=== PATIENT | female | born 1965 | race Hispanic/Latino ===

== ENCOUNTER 2017-06-11 20:07 | Observation (INO) | payer MEDICAID ==
[2017-06-11 20:07] VITALS: BMI 28.1
[2017-06-11] MEDS ORDERED: Morphine 4 mg/ml ISec IM STA (22:07)
--- NOTE | 2017-06-11 22:07 | ED PDOC ---
Arrival/HPI - General Chief Complaint: Headache Time Seen by Provider: 06/11/17 21:54 Historian: Patient - History of Present Illness Narrative History of Present Illness (Text): 06/11/17 21:56 52 y/o female, pmh including htn/asthma/disc bulging C5-C7, nkda, Last MRI of the brain 10/2016 show no acute findings, c/o posterior headache and neck pain x3 days. Pt. 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 Past Medical History - Provider Review Nursing Documentation Reviewed: Yes - Past History Past History: No Previous - Infectious Disease Hx of Infectious Diseases: None - Tetanus Immunization Tetanus Immunization: Unknown - Reproductive Menopause: Yes - Cardiac Hx Cardiac Disorders: No Hx Congestive Heart Failure: No Hx Hypertension: Yes - Pulmonary Hx Chronic Obstructive Pulmonary Disease (COPD): Yes (smoker) Hx Pneumonia: No - Neurological HX Cerebrovascular Accident: No Other/Comment: [place] palsy - HEENT Hx HEENT Disorder: Yes Other/Comment: vocal cord lesions - Renal Hx Renal Failure: No - Endocrine/Metabolic Hx Diabetes Mellitus Type 1: No Hx Diabetes Mellitus Type 2: No Hx Hypothyroidism: No - Hematological/Oncological Hx Cancer: No - Integumentary Hx Dermatological Disorder: No - Musculoskeletal/Rheumatological Hx Arthritis: No Hx Rheumatoid Arthritis: No - Gastrointestinal Hx Gastroesophageal Reflux: No - Genitourinary/Gynecological Hx Genitourinary Disorders: Yes Other/Comment: Tubal ligation, [place] bleeding - Psychiatric Hx Psychophysiologic Disorder: Yes Hx Anxiety: Yes Hx Panic Disorder: Yes Hx Substance Use: No - Past Surgical History Past Surgical History: Unable to Obtain - Surgical History Hx Tubal Ligation: Yes Other/Comment: vocal cord surgery - Anesthesia Hx Anesthesia: Yes Hx Anesthesia Reactions: No Hx Malignant Hyperthermia: No - Suicidal Assessment Feels Threatened In Home Enviroment: No Family/Social History - Physician Review Nursing Documentation Reviewed: Yes Family/Social History: Unknown Family HX Smoking Status: Former Smoker Hx Alcohol Use: No Hx Substance Use: No Hx Substance Use Treatment: No Allergies/Home Meds Allergies/Adverse Reactions: Allergies No Known Allergies Allergy (Verified 11/01/16 16:40) Home Medications: Home Meds Medication Instructions Recorded Confirmed Gabapentin 300 mg PO BID 03/09/12 06/12/17 Montelukast [Singulair] 10 mg PO DAILY 03/09/12 06/12/17 Albuterol 0.083% [Albuterol 0.083% 3 ml IH PRN PRN 06/07/13 06/12/17 Inhal Aida (2.5 mg/3 ml) UD] Acetaminophen/Oxycodone Hydr 1 tab PO Q4H 03/02/14 06/12/17 [Percocet 10/325 mg Tab] Albuterol [Proventil] 1 inh PO PRN PRN 03/02/14 06/12/17 Carisoprodol [Soma] 350 mg PO TID 06/02/15 06/12/17 Carvedilol [Coreg] 6.25 mg PO BID 06/02/15 06/12/17 Meclizine HCl 25 mg PO TID 06/02/15 06/12/17 Omeprazole [PrilOSEC] 20 mg PO DAILY 06/02/15 06/12/17 Paroxetine HCl [Paxil] 20 mg PO DAILY 06/02/15 06/12/17 carBAMazepine [TEGretol-XR] 200 mg PO BID 06/02/15 06/12/17 clonazePAM [Klonopin] 1 mg PO BID 02/20/16 06/12/17 Review of Systems - Review of Systems Constitutional: absent: Fatigue, Fevers Eyes: absent: Vision Changes ENT: absent: Hearing Changes Respiratory: absent: SOB, Cough Cardiovascular: absent: Chest Pain Gastrointestinal: absent: Abdominal Pain, Nausea, Vomiting Musculoskeletal: Neck Pain. absent: Arthralgias, Back Pain Skin: absent: Rash, Pruritis, Skin Lesions Neurological: Headache, Speech Changes. absent: Dizziness, Focal Weakness, Gait Changes, Facial Droop, Disequilibrium Physical Exam Vital Signs Reviewed: Yes Vital Signs Temp Pulse Resp BP Pulse Ox 06/12/17 02:32 77 18 132/83 95 06/11/17 21:15 98.5 F 98 H 16 161/92 H 95 Temperature: Afebrile Blood Pressure: Hypertensive Pulse: Regular Respiratory Rate: Normal Appearance: Positive for: Well-Appearing, Non-Toxic Pain Distress: Severe Mental Status: Positive for: Alert and Oriented X 3 - Systems Exam Head: Present: Atraumatic, Normocephalic. No: Tenderness, Contusion, Swelling, Ecchymosis, Abrasion, Laceration, Other Pupils: Present: PERRL Extroacular Muscles: Present: EOMI Conjunctiva: Present: Normal Mouth: Present: Moist Mucous Membranes Neck: Present: Normal Range of Motion, Trachea Midline. No: Meningeal Signs, MIDLINE TENDERNESS, Paraspinal Tenderness, Lymphadenopathy Respiratory/Chest: Present: Clear to Auscultation, Good Air Exchange. No: Respiratory Distress, Accessory Muscle Use Cardiovascular: Present: Regular Rate and Rhythm, Normal S1, S2. No: Murmurs Abdomen: Present: Normal Bowel Sounds. No: Tenderness, Distention, Peritoneal Signs, Rebound, Guarding Back: Present: Normal Inspection Upper Extremity: Present: Normal Inspection. No: Cyanosis, Edema Lower Extremity: Present: Normal Inspection. No: Edema Neurological: Present: GCS=15, Motor Func Grossly Intact, Memory Normal. No: Speech Normal (slurred speech) Skin: Present: Warm, Dry, Normal Color. No: Rashes Psychiatric: Present: Alert, Oriented x 3, Normal Insight, Normal Concentration Medical Decision Making ED Course and Treatment: 06/11/17 22:21 -CT head -pt. able to tolerate the swallow screen with a cup of water with no drooling -Morphine 4mg and benadryl 50mg -observe and reassess 06/12/17 01:05 06/12/17 01:15 -EKG: NSR @ 63 BPM, no ST elevation or depression, no T wave inversion. -CT head show no acute findings. -NIHSS is 1 -Pain decreased but the slurring still exist, aspirin ordered, labs ordered, will admit the patient over night. Not a TPA candidate -labs are non-significant, negative troponin 06/12/17 01:37 -I spoke to Dr. Clayton and request to admit to the hospitalist service. -I spoke to Dr. Moore and Dr. Zapata (medical numerical control operator), discussed about the case and agreed on keep the patient as observation. -Dr. Michael will put in the admission to tele. - Lab Interpretations Lab Results: 06/12/17 00:10 06/12/17 00:10 Lab Results 06/12/17 00:30: Urine Color Cancelled, Urine Appearance Cancelled, Urine pH Cancelled, Ur Specific [place] Cancelled, Urine Protein Cancelled, Urine Glucose (UA) Cancelled, Urine Ketones Cancelled, Urine Blood Cancelled, Urine Nitrate Cancelled, Urine Bilirubin Cancelled, Urine Urobilinogen Cancelled, Ur Leukocyte Esterase Cancelled, Urine RBC Cancelled, Urine WBC Cancelled, Ur Epithelial Cells Cancelled, Calcium Oxalate Crystal Cancelled, Uric Acid Crystals Cancelled, Triple Phos Crystals Cancelled, Other Crystals Cancelled, Amorphous Sediment Cancelled, Urine Bacteria Cancelled, Hyaline Casts Cancelled , Fine Granular Casts Cancelled, Coarse Granular Casts Cancelled, Waxy Casts Cancelled, RBC Casts Cancelled, WBC Casts Cancelled, Urine Other Cancelled 06/12/17 00:10: Sodium 138, Potassium 4.3, Chloride 104, Carbon Dioxide 27, Anion Gap 11, BUN 8, Creatinine 0.6, Est GFR ( Amer) > 60, Est GFR (Non- Af Amer) > 60, Random Glucose 79, Calcium 9.2, Magnesium 1.9, Total Bilirubin 0.6, AST 21, ALT 22, Alkaline Phosphatase 64, Lactate Dehydrogenase 467, Total Creatine Kinase 69, Troponin I < 0.01, Total Protein 6.6, Albumin 3.8, Globulin 2.7, Albumin/Globulin Ratio 1.4 06/12/17 00:10: WBC 5.3 D, RBC 3.89, Hgb 12.5, Hct 37.1, MCV 95.4, MCH 32.1, MCHC 33.7, RDW 13.5, Plt Count 243, MPV 9.4, Gran % 57.1, Lymph % (Auto) 34.0, [place] % (Auto) 7.4 H, Eos % (Auto) 1.1 L, Baso % (Auto) 0.4, Gran # 3.01, Lymph # 1.8, [place] # 0.4, Eos # 0.1, Baso # 0.02 I have reviewed the lab results: Yes Interpretation: No clinic. lab abnormalty - RAD Interpretation Radiology Orders: 06/11/17 22:07 HEAD W/O CONTRAST [CT] Stat no acute intracranial findings. Mental Health Case Manager: Radiologist - EKG Interpretation EKG Interpretation (Text): 06/12/17 01:37 NSR @ 63 BPM, no ST elevation or depression, no T wave inversion. Interpreted by ED Physician: Yes Type: 12 lead EKG - Medication Orders Current Medication Orders: Acetaminophen/Butalbital/Caffeine (Fioricet) 1 tab PO Q4H PRN PRN Reason: Headache Albuterol/Ipratropium (Duoneb 3 Mg/0.5 Mg (3 Ml) Ud) 3 ml IH Q2H PRN PRN Reason: Shortness of Breath Carvedilol (Coreg) 6.25 mg PO BID [facility] Last Admin: 06/12/17 09:33 Dose: 6.25 mg Al Hydrox/Mg Hydrox/Simethicone 30 ml/Diphenhydramine HCl 75 mg/Lidocaine 30 ml 0 ml PO Q2H PRN PRN Reason: Mouth/Throat Pain Cyclobenzaprine HCl (Flexeril) 10 mg PO TID [facility] Last Admin: 06/12/17 13:27 Dose: 10 mg Ibuprofen (Motrin Tab) 400 mg PO Q6H PRN PRN Reason: Pain, Mild (1-3) Montelukast Sodium (Singulair) 10 mg PO HS [facility] Oxycodone/Acetaminophen (Percocet 10/325 Mg Tab) 1 tab PO Q4H PRN PRN Reason: Pain, severe (8-10) Pantoprazole Sodium (Protonix Inj) 40 mg IVP DAILY [facility] Last Admin: 06/12/17 09:33 Dose: 40 mg Discontinued Medications Aspirin (Aspirin) 325 mg PO STAT STA Stop: 06/11/17 23:45 Last Admin: 06/12/17 00:17 Dose: 325 mg Diphenhydramine HCl (Benadryl) 50 mg IVP STAT STA Stop: 06/11/17 22:34 Last Admin: 06/11/17 22:48 Dose: 50 mg Morphine Sulfate (Morphine) 4 mg IVP STAT STA Stop: 06/11/17 22:34 Last Admin: 06/11/17 22:48 Dose: 4 mg NIHSS Scale ([place]) Time Performed: 01:04 - How Severe is the Stoke Baseline Level of Consciousness: 0=Alert LOC to Questions: 0=Both comments correct LOC to commands: 0=Obeys both correctly Best Gaze: 0=Normal Visual: 0=No visual loss Facial: 0=Normal Motor Arm - Left: 0=No drift Motor Arm - Right: 0=No drift Motor Leg - Left: 0=No drift Motor Leg - Right: 0=No drift Limb Ataxia: 0=Absent Sensory: 0=Normal Best Language: 0=No aphasia Dysarthia: 1=Mild to moderate slurring Extinction & Inattention (Neglect): 0=Normal, no object Score: 1 Risk Level: Minor Stroke Risk rTPA Inclusion/Exclusion - Refusal of Treatment Patient Refused Treatment: No - Inclusion Criteria for Altepase Patient is 18 years or Older: Yes The Clinical Diagnosis of Ischemic Stroke That is Causing a Potentially Disabling Neurological Deficit: Yes Time of Onset is Well Established to be Less Than 270 Minute Before Treatment Would Begin: No Risk/Benefit Discussed With Patient/Family Member Present: Yes - Exclusion Criteria for Altepase Uncontrolled Hypertension at Time of Treatment (Systolic BP above 185 or Diastolic BP above 110 mmHg): No Active Internal Bleeding: No Known Bleeding Diathesis Including but Not Limited to: Platelets Below 100,000/ mm,PTT Above 40 sec After Heparin Use, Current Use of Oral Anitcoagulant With INR Greater Than 1.7 or PT Greater Than 15 secs: No Evidence of an Intracranial Hemorrhage: No Evidence of Major Acute Infarct With Signs Greater Than 1/3 MCA Territory: No Suspicion of Subarachnoid Hemorrhage on Pretreatment Evaluation Even if CT Head Negative For Hemorrhage: No - Warning to TPA With Conditions Following Conditions Weighed Against Anticipated Benefit: No - PA / WAREHOUSE EXAMINER / Resident Statement MD/DO has reviewed & agrees with the documentation as recorded. Disposition/Present on Arrival - Present on Arrival Any Indicators Present on Arrival: No History of DVT/PE: No History of Uncontrolled Diabetes: No Urinary Catheter: No History of Decub. Ulcer: No History Surgical Site Infection Following: None - Disposition Have Diagnosis and Disposition been Completed?: Yes Diagnosis: Transient ischemic attack (TIA) Disposition: HOSPITALIZED Disposition Time: 01:05 Patient Plan: Telemetry Patient Problems: Current Active Problems Problem Status Onset Transient ischemic attack (TIA) Acute Condition: STABLE
[2017-06-11] MEDS ORDERED: DiphenhydrAMINE 50 mg/ml Inj IM STA (22:23)
[2017-06-11] MEDS ORDERED: DiphenhydrAMINE 50 mg/ml Inj IVP STA (22:33)
[2017-06-11] MEDS ORDERED: Morphine 4 mg/ml ISec IVP STA (22:33)
--- NOTE | 2017-06-11 22:56 | CT ---
EXAM: CT Head Without Intravenous Contrast CLINICAL HISTORY: 52 years old, female; Pain; Headache; Tension; Additional info: Headache x 5 days TECHNIQUE: Axial computed tomography images of the head/brain without intravenous contrast. This CT exam was performed using one or more of the following dose reduction techniques: automated exposure control, adjustment of the mA and/or kV according to patient size, and/or use of iterative reconstruction technique. COMPARISON: CT - HEAD W/O (CODE STROKE) 11/01/2016 5:00:46 PM FINDINGS: Brain: No acute intracranial hemorrhage. No significant white matter disease. No edema. Ventricles: No significant ventriculomegaly. Bones: No acute displaced fracture. Sinuses: Unremarkable as visualized. No acute sinusitis. Mastoid air cells: Unremarkable as visualized. No mastoid effusion. Again identified are multiple subcutaneous scalp nodules, nonspecific in etiology. IMPRESSION: No acute intracranial hemorrhage, or suspicious mass effect.
[2017-06-12 01:01] LABS: ALB/GLOB RATIO 1.4 (1.1-1.8); ALBUMIN 3.8 g/dL (3.0-4.8); ALT/SGPT 22 U/L (7-56); AST/SGOT 21 U/L (15-39); BASO # 0.02 K/mm3 (0.0-2.0); BASO % 0.4 % (0.0-3.0); BLOOD UREA NITROGEN 8 mg/dL (7-21); CALCIUM 9.2 mg/dL (8.4-10.5); EOS # 0.1 (0.0-0.7); EOS % 1.1 % (1.5-5.0); GFR AFRICAN-AMERICAN > 60; GFR NON-AFRICAN AMERICAN > 60; GRAN # 3.01 (1.4-6.5); GRAN % 57.1 % (50.0-68.0); HEMOGLOBIN 12.5 g/dL (12.0-16.0); LYMPH # 1.8 (1.2-3.4); MAGNESIUM 1.9 mg/dL (1.7-2.2); MEAN CELL VOLUME 95.4 fl (80.0-105.0); MEAN CORPUSCULAR HEMOGLOBIN 32.1 pg (25.0-35.0); MEAN CORPUSCULAR HGB CONC 33.7 g/dl (31.0-37.0); MEAN PLATELET VOLUME 9.4 fl (7.0-11.0); MONO # 0.4 (0.1-0.6); MONO % 7.4 % (1.0-6.0); PLATELET COUNT 243 10^3/uL (120.0-450.0); RBC 3.89 10^6/uL (3.5-6.1); RED CELL DISTRIBUTION WIDTH 13.5 % (11.5-14.5); WHITE BLOOD COUNT 5.3 10^3/ul (4.5-11.0)
[2017-06-12 01:24] LABS: TROPONIN I < 0.01 ng/mL
[2017-06-12] MEDS ORDERED: Aluminum Hydroxide/Magnesium 30 ML, DiphenhydrAMINE 75 MG, Lidocaine 2% Viscous 30 ML PO PRN (02:36)
[2017-06-12 02:40] LABS: URINE BILIRUBIN NEGATIVE (NEGATIVE); URINE BLOOD SMALL (NEGATIVE); URINE GLUCOSE (UA) NEGATIVE (NEGATIVE); URINE LEUKOCYTE ESTERASE SMALL Leu/uL (NEGATIVE); URINE NITRATE NEGATIVE (NEGATIVE); URINE PROTEIN NEGATIVE mg/dL (<30 mg/dL); URINE UROBILINOGEN 0.2 E.U./dL (<1 E.U./dL)
[2017-06-12] MEDS ORDERED: Albuterol-Ipratrop 3 mg / 0.5 (3 ml) UD IH PRN (02:43)
[2017-06-12] MEDS ORDERED: Oxycodone/Acetaminophen 10/325 mg Tab PO PRN (02:44)
[2017-06-12 03:05] LABS: URINE APPEARANCE SL CLOUDY (CLEAR); URINE COLOR YELLOW (YELLOW)
[2017-06-12 03:10] LABS: URINE EPITHELIAL CELLS 0 - 2 /hpf (0-5); URINE RBC 0 - 2 /hpf (0-2)
--- NOTE | 2017-06-12 04:09 | CP.PCM.HP ---
<CARSON AYALA - Last Filed: 06/12/17 04:18> History of Present Illness - History of Present Illness History of Present Illness: CC: Tongue and neck pain HPI: Ms. Davidson is a 52 year old female with a PMH of asthma, COPD, HTN, [place] Palsy (right), and chronic neck and back pain, presents with new onset 10/10 left sided neck pain, tongue pain and left sided maxillary droop. She saw her PMD on 06/06/17 for tongue pain, in which she was prescribed a 5 day course of an unknown antibiotic which did not relieve the pain. She woke up early Sunday morning with a sharp neck pain that radiated down her back. An 81mg Aspirin provided minimal relief and she was able to go back to sleep. When she woke up she reports that her pain was back to being a 10/10 and her 10 year old daughter mentioned that she "did not sound like herself". The pain increased and she came into the ED. She also complains of dry mouth. Denies n/v/d, palpitations, SOB, and cp. In the ED an EKG showed NSR and no ST elevation or depression, no T wave inversion and a CT head showed no acute findings. PMH: asthma, COPD, HTN, [place] Palsy (right), and chronic neck (right sided) and back pain PSH: vocal cord surgery FMH: father from heart disease and brother from an "enlarged heart" Social: smokes <1 ppd for 20 years, denies alcohol, illicit drug use Allergies: seasonal, dogs Home meds: As per JAN ROS: Constitutional: pt denies fever, chills, generalized weakness ENT: pt denies dysphagia, otalgia, hearing deficit, rhinorrhea Eyes: pt denies sudden loss of vision, diplopia, blurred vision MSK: acute on chronic neck pain, pt denies muscle stiffness, extremity cramping Cardio: pt denies heart murmur, cp Pulm: pt denies sob, cough, hemoptysis, wheeze GI: constipation, pt denies loss of appetite, n/v/d, melena, hematemesis : pt denies burning on urination, urinary frequency, hematuria, urinary urgency Neuro: slurred speech, pt denies paresis, MADRID, paresthesia, dizziness, numbness, tingling Derm: pt denies nail changes, rashes Endo: pt denies night sweats, polydipsia Psych: pt denies anxiety, depression, mood changes Present on Admission - Present on Admission Any Indicators Present on Admission: No Review of Systems - Review of Systems Review of Systems: Please refer to HPI Past Patient History - Infectious Disease Hx of Infectious Diseases: None - Tetanus Immunizations Tetanus Immunization: Unknown - Past Medical History & Family History Past Medical History?: Yes - Past Social History Smoking Status: Former Smoker - CARDIAC Hx Cardiac Disorders: No Hx Congestive Heart Failure: No Hx Hypertension: Yes - PULMONARY Hx Chronic Obstructive Pulmonary Disease (COPD): Yes (smoker) Hx Pneumonia: No - NEUROLOGICAL HX Cerebrovascular Accident: No Other/Comment: [place] palsy - HEENT Hx HEENT Problems: Yes Other/Comment: vocal cord lesions - RENAL Hx Renal Failure: No - ENDOCRINE/METABOLIC Hx Diabetes Mellitus Type 1: No Hx Diabetes Mellitus Type 2: No Hx Hypothyroidism: No - HEMATOLOGICAL/ONCOLOGICAL Hx Cancer: No - INTEGUMENTARY Hx Dermatological Problems: No - MUSCULOSKELETAL/RHEUMATOLOGICAL Hx Arthritis: No Hx Rheumatoid Arthritis: No - GASTROINTESTINAL Hx Gastroesophageal Reflux: No - GENITOURINARY/GYNECOLOGICAL Hx Genitourinary Disorders: Yes Other/Comment: Tubal ligation, [place] bleeding - PSYCHIATRIC Hx Psychophysiologic Disorder: Yes Hx Anxiety: Yes Hx Panic Symptoms: Yes Hx Substance Use: No - SURGICAL HISTORY Hx Tubal Ligation: Yes Other/Comment: vocal cord surgery - ANESTHESIA Hx Anesthesia: Yes Hx Anesthesia Reactions: No Hx Malignant Hyperthermia: No Meds Allergies/Adverse Reactions: Allergies Allergy/AdvReac Type Severity Reaction Status Date / Time No Known Allergies Allergy Verified 11/01/16 16:40 Physical Exam - Constitutional Appears: No Acute Distress - Head Exam Head Exam: NORMAL INSPECTION, NORMOCEPHALIC - Eye Exam Eye Exam: EOMI, Normal appearance, PERRL Pupil Exam: NORMAL ACCOMODATION - ENT Exam ENT Exam: Mucous Membranes Dry. absent: Normal Oropharynx Additional comments: White plaques present on tongue bilaterally; oropharynx normal - Neck Exam Neck exam: Positive for: Tenderness. Negative for: Full Rom, Lymphadenopathy, Meningismus, Thyromegaly Additional comments: Paraspinal tenderness bilaterally from CVA to T1 more so on the R; limited ROM d /t pain - Respiratory Exam Respiratory Exam: Wheezes, NORMAL BREATHING PATTERN. absent: Clear to Auscultation Bilateral, Rales, Rhonchi Additional comments: faint inspiratory wheezes diffusely - Cardiovascular Exam Cardiovascular Exam: REGULAR RHYTHM, RRR, +S1, +S2. absent: Bradycardia, Tachycardia, Systolic Murmur - GI/Abdominal Exam GI & Abdominal Exam: Normal Bowel Sounds, Soft. absent: Distended, Firm, Guarding, Tenderness - Exam Exam: absent: Bladder Distension - Extremities Exam Extremities exam: Positive for: normal capillary refill, normal inspection, pedal pulses present. Negative for: calf tenderness - Back Exam Back exam: CVA tenderness (L), CVA tenderness (R), paraspinal tenderness - Neurological Exam Neurological exam: Alert, Oriented x3 Additional comments: CN II-XI intact; tongue deviation to L; left lip droop - Psychiatric Exam Psychiatric exam: Normal Affect, Normal Mood - Skin Skin Exam: Dry, Intact, Normal Color, Warm Results - Vital Signs Recent Vital Signs: Last Vital Signs Temp 98.5 F 06/11/17 21:15 Pulse 77 06/12/17 02:32 Resp 18 06/12/17 02:32 BP 132/83 06/12/17 02:32 Pulse Ox 95 06/12/17 02:32 - Labs Result Diagrams: 06/12/17 00:10 06/12/17 00:10 Labs: Laboratory Results - last 24 hr 06/12/17 01:50 Urine Color Yellow Urine Appearance Sl cloudy Urine pH 6.0 Ur Specific [place] 1.010 Urine Protein Negative Urine Glucose (UA) Negative Urine Ketones Trace H Urine Blood Small H Urine Nitrate Negative Urine Bilirubin Negative Urine Urobilinogen 0.2 Ur Leukocyte Esterase Small H Urine RBC 0 - 2 Urine WBC 1 - 3 Ur Epithelial Cells 0 - 2 Assessment & Plan - Assessment and Plan (Free Text) Assessment: 52 year old female with a PMH of asthma, COPD, HTN, [place] Palsy (right), and chronic neck and back pain, presents with new onset 10/10 left sided neck pain, tongue pain and left sided maxillary droop Plan: 1. TIA -see CT report -NIHSS score of 1 -swallow study/eval pending -neuro checks q4h -neurology consulted (Be), will follow recommendations 2. Neck Pain -Cervical spine x-ray pending -percocet 10/325 for severe pain -motrin for moderate pain 3. Tongue Pain/Oral Lesions -likely thrush from chronic use of COPD inhalers -magic mouthwash -consider throat culture and possible d/c with nystatin oral susp -pain management as above 4. History of COPD -Duonebs q2h PRN -cont singulair -smoking cessation advised 5. GI/DVT Prophylaxis -protonix/scd's Patient seen and case discussed with attending, Dr. Moore. - Date & Time Date: 06/12/17 Time: 03:00 Decision To Admit - Pt Status Changed To: Hospital Disposition Of: Observation - . Bed Request Type: Telemetry <Phong Moore - Last Filed: 06/12/17 06:48> Results - Vital Signs Recent Vital Signs: Last Vital Signs Temp 98.1 F 06/12/17 05:37 Pulse 65 06/12/17 05:38 Resp 20 06/12/17 05:37 BP 115/62 06/12/17 05:37 Pulse Ox 94 L 06/12/17 05:37 - Labs Result Diagrams: 06/12/17 00:10 06/12/17 00:10 Labs: Laboratory Results - last 24 hr 06/12/17 01:50 Urine Color Yellow Urine Appearance Sl cloudy Urine pH 6.0 Ur Specific [place] 1.010 Urine Protein Negative Urine Glucose (UA) Negative Urine Ketones Trace H Urine Blood Small H Urine Nitrate Negative Urine Bilirubin Negative Urine Urobilinogen 0.2 Ur Leukocyte Esterase Small H Urine RBC 0 - 2 Urine WBC 1 - 3 Ur Epithelial Cells 0 - 2 Attending/Attestation - Attestation I have personally seen and examined this patient.: Yes I have fully participated in the care of the patient.: Yes I have reviewed all pertinent clinical information: Yes Notes (Text): 06/12/17 06:42 Patient was seen when she was in bed # 21 in the ER. Agree with history, physical examination, assessment and plan. Following should be added to record. This 52 year old white woman whose PMD is Dr. Clayton , who has PMH of HTN,Asthma ,chronic back pain,chronic neck pain,Kang's palsy,
[2017-06-12 05:38] VITALS: O2SAT 94
--- NOTE | 2017-06-12 08:00 | RAD ---
PROCEDURE: Cervical spine two views portable HISTORY: Acute on chronic neck pain; hx of C5-7 bulge discs COMPARISON: TECHNIQUE: Two views portable FINDINGS: There is no obvious fracture or malalignment. The study is limited by portable technique. The shoulder is superimposed upon the spine IMPRESSION: Limited negative study
[2017-06-12 08:43] LABS: ALB/GLOB RATIO 1.3 (1.1-1.8); ALBUMIN 3.8 g/dL (3.0-4.8); ALT/SGPT 22 U/L (7-56); AST/SGOT 30 U/L (15-39); BLOOD UREA NITROGEN 7 mg/dL (7-21); CALCIUM 9.1 mg/dL (8.4-10.5); GFR AFRICAN-AMERICAN > 60; GFR NON-AFRICAN AMERICAN > 60
[2017-06-12 09:00] LABS: BASO # 0.01 K/mm3 (0.0-2.0); BASO % 0.2 % (0.0-3.0); EOS # 0.1 (0.0-0.7); EOS % 2.1 % (1.5-5.0); GRAN # 2.43 (1.4-6.5); GRAN % 55.4 % (50.0-68.0); HEMOGLOBIN 12.7 g/dL (12.0-16.0); LYMPH # 1.4 (1.2-3.4); LYMPH % 31.4 % (22.0-35.0); MEAN CELL VOLUME 95.3 fl (80.0-105.0); MEAN CORPUSCULAR HEMOGLOBIN 32.8 pg (25.0-35.0); MEAN CORPUSCULAR HGB CONC 34.4 g/dl (31.0-37.0); MEAN PLATELET VOLUME 9.1 fl (7.0-11.0); MONO # 0.5 (0.1-0.6); MONO % 10.9 % (1.0-6.0); PLATELET COUNT 250 10^3/uL (120.0-450.0); RBC 3.87 10^6/uL (3.5-6.1); RED CELL DISTRIBUTION WIDTH 13.5 % (11.5-14.5); WHITE BLOOD COUNT 4.4 10^3/ul (4.5-11.0)
[2017-06-12] MEDS ORDERED: Apap-Butalbital-Caffeine 325-50-40mg Tab PO PRN (13:08)
--- NOTE | 2017-06-12 13:19 | CP.PCM.CON ---
<Aniket Guzmán - Last Filed: 06/12/17 16:57> History of Present Illness - History of Present Illness History of Present Illness: Neurology Progress Note for Dr. Lr 52 y/o F with a PMH of asthma, COPD, HTN, [place] Palsy (right), and chronic neck and back pain presents with right sided neck and tongue pain, along with right sided facial droop. Pt states she has had these symptoms intermittently over the past 17 years. The come and go at different intervals, depending on the severity of her symptoms. Pt use to follow with Neurologist, Dr. Hugo, but no longer does due to insurance issues. Pt states she began having pain yesterday morning when she woke up. Pain was located on the right side of her head and radiated down her back, along her spine. Pt tried taking ASA to help with pain, but it did not help. Pt states she had the facial droop several days ago, in which her PMD prescribed her antibiotics, however, she does not know the name of the drug. At this time, patient came to the ED. Denies CP, SOB, N/V/ D, fevers, chills, recent sick contacts. PMH: asthma, COPD, HTN, [place] Palsy PSH: Vocal cord surgery FMH: Father - CAD Social: smokes <1 ppd for 20 years, denies alcohol, illicit drug use Allergies: seasona Home meds: Reviewed, as per [facility] Review of Systems - Constitutional Constitutional: absent: Chills, Fatigue - EENT Eyes: absent: Blurred Vision, Diplopia - Cardiovascular Cardiovascular: absent: Chest Pain, Irregular Heart Rhythm - Respiratory Respiratory: absent: Cough, Dyspnea - Gastrointestinal Gastrointestinal: absent: Diarrhea, Vomiting - Genitourinary Genitourinary: absent: Dysuria, Pyuria - Integumentary Integumentary: absent: New Lesions, Rash - Neurological Neurological: Numbness, Weakness. absent: Headaches, Syncope, Tingling - Hematologic/Lymphatic Hematologic: absent: Easy Bleeding, Easy Bruising Past Patient History - Infectious Disease Hx of Infectious Diseases: None - Tetanus Immunizations Tetanus Immunization: Unknown - Past Medical History & Family History Past Medical History?: Yes - Past Social History Smoking Status: Former Smoker - CARDIAC Hx Cardiac Disorders: No Hx Congestive Heart Failure: No Hx Hypertension: Yes - PULMONARY Hx Chronic Obstructive Pulmonary Disease (COPD): Yes (smoker) Hx Pneumonia: No - NEUROLOGICAL HX Cerebrovascular Accident: No Other/Comment: Sterling palsy - HEENT Hx HEENT Problems: Yes Other/Comment: vocal cord lesions - RENAL Hx Renal Failure: No - ENDOCRINE/METABOLIC Hx Diabetes Mellitus Type 1: No Hx Diabetes Mellitus Type 2: No Hx Hypothyroidism: No - HEMATOLOGICAL/ONCOLOGICAL Hx Cancer: No - INTEGUMENTARY Hx Dermatological Problems: No - MUSCULOSKELETAL/RHEUMATOLOGICAL Hx Arthritis: No Hx Rheumatoid Arthritis: No - GASTROINTESTINAL Hx Gastroesophageal Reflux: No - GENITOURINARY/GYNECOLOGICAL Hx Genitourinary Disorders: Yes Other/Comment: Tubal ligation, [place] bleeding - PSYCHIATRIC Hx Psychophysiologic Disorder: Yes Hx Anxiety: Yes Hx Panic Symptoms: Yes Hx Substance Use: No - SURGICAL HISTORY Hx Tubal Ligation: Yes Other/Comment: vocal cord surgery - ANESTHESIA Hx Anesthesia: Yes Hx Anesthesia Reactions: No Hx Malignant Hyperthermia: No Meds Home Medications: Home Medication List Medication Instructions Recorded Confirmed Type Gabapentin 400 mg PO DAILY #30 capsule 06/12/17 Rx Allergies/Adverse Reactions: Allergies Allergy/AdvReac Type Severity Reaction Status Date / Time No Known Allergies Allergy Verified 11/01/16 16:40 - Medications Medications: Current Medications Acetaminophen/Butalbital/Caffeine (Fioricet) 1 tab PO Q4H PRN PRN Reason: Headache Albuterol/Ipratropium (Duoneb 3 Mg/0.5 Mg (3 Ml) Ud) 3 ml IH Q2H PRN PRN Reason: Shortness of Breath Carvedilol (Coreg) 6.25 mg PO BID [facility] Last Admin: 06/12/17 09:33 Dose: 6.25 mg Al Hydrox/Mg Hydrox/Simethicone 30 ml/Diphenhydramine HCl 75 mg/Lidocaine 30 ml 0 ml PO Q2H PRN PRN Reason: Mouth/Throat Pain Cyclobenzaprine HCl (Flexeril) 10 mg PO TID [facility] Ibuprofen (Motrin Tab) 400 mg PO Q6H PRN PRN Reason: Pain, Mild (1-3) Montelukast Sodium (Singulair) 10 mg PO HS [facility] Oxycodone/Acetaminophen (Percocet 10/325 Mg Tab) 1 tab PO Q4H PRN PRN Reason: Pain, severe (8-10) Pantoprazole Sodium (Protonix Inj) 40 mg IVP DAILY [facility] Last Admin: 06/12/17 09:33 Dose: 40 mg Physical Exam - Constitutional Appears: Non-toxic, No Acute Distress - Head Exam Head Exam: ATRAUMATIC, NORMOCEPHALIC Additional comments: Pain on right side of the head, mainly behind right ear - Eye Exam Eye Exam: EOMI - ENT Exam ENT Exam: Mucous Membranes Moist - Neck Exam Neck exam: Positive for: Normal Inspection. Negative for: Lymphadenopathy - Respiratory Exam Respiratory Exam: Clear to Auscultation Bilateral, NORMAL BREATHING PATTERN. absent: Rales, Rhonchi, Wheezes - Cardiovascular Exam Cardiovascular Exam: RRR, +S1, +S2 - GI/Abdominal Exam GI & Abdominal Exam: Normal Bowel Sounds, Soft. absent: Tenderness - Extremities Exam Extremities exam: Positive for: normal inspection. Negative for: calf tenderness, pedal edema - Neurological Exam Neurological exam: Alert, CN II-XII Intact, Oriented x3 - Psychiatric Exam Psychiatric exam: Normal Affect, Normal Mood - Skin Skin Exam: Intact, Normal Color, Warm Results - Vital Signs Recent Vital Signs: Last Vital Signs Temp 98.1 F 06/12/17 05:37 Pulse 72 06/12/17 10:00 Resp 20 06/12/17 05:37 BP 111/68 06/12/17 09:33 Pulse Ox 94 L 06/12/17 05:37 - Labs Result Diagrams: 06/12/17 07:45 06/12/17 06:30 Labs: Laboratory Results - last 24 hr 06/12/17 06/12/17 06/12/17 01:50 06:30 07:45 WBC 4.4 L RBC 3.87 Hgb 12.7 Hct 36.9 MCV 95.3 MCH 32.8 MCHC 34.4 RDW 13.5 Plt Count 250 MPV 9.1 Gran % 55.4 Lymph % (Auto) 31.4 [place] % (Auto) 10.9 H Eos % (Auto) 2.1 Baso % (Auto) 0.2 Gran # 2.43 Lymph # 1.4 [place] # 0.5 Eos # 0.1 Baso # 0.01 Sodium 140 Potassium 3.6 Chloride 104 Carbon Dioxide 28 Anion Gap 12 BUN 7 Creatinine 0.6 Est GFR ( Amer) > 60 Est GFR (Non-Af Amer) > 60 Random Glucose 80 Calcium 9.1 Total Bilirubin 0.7 AST 30 ALT 22 Alkaline Phosphatase 63 Total Protein 6.8 Albumin 3.8 Globulin 3.0 Albumin/Globulin Ratio 1.3 Urine Color Yellow Urine Appearance Sl cloudy Urine pH 6.0 Ur Specific [place] 1.010 Urine Protein Negative Urine Glucose (UA) Negative Urine Ketones Trace H Urine Blood Small H Urine Nitrate Negative Urine Bilirubin Negative Urine Urobilinogen 0.2 Ur Leukocyte Esterase Small H Urine RBC 0 - 2 Urine WBC 1 - 3 Ur Epithelial Cells 0 - 2 Assessment & Plan - Assessment and Plan (Free Text) Plan: 52 y/o F with a PMH of asthma, COPD, HTN, [place] Palsy (right), and chronic neck and back pain presents with right sided neck and tongue pain, along with right sided facial droop. Pt admitted recently with similar complaints and had full workup which was all negative. Pt does not have bells palsy, but likely cervicogenic headache. Pt is neurologically stable at this time. Plan: Continue Neurontin Flexeril 10 mg PO TID Outpt follow up with physical therapy for cervical muscles Follow up in office outpt Ramirez PGY-2 <Tariq Lr - Last Filed: 06/12/17 17:08> Meds - Medications Medications: Current Medications Acetaminophen/Butalbital/Caffeine (Fioricet) 1 tab PO Q4H PRN PRN Reason: Headache Albuterol/Ipratropium (Duoneb 3 Mg/0.5 Mg (3 Ml) Ud) 3 ml IH Q2H PRN PRN Reason: Shortness of Breath Carvedilol (Coreg) 6.25 mg PO BID [facility] Last Admin: 06/12/17 09:33 Dose: 6.25 mg Al Hydrox/Mg Hydrox/Simethicone 30 ml/Diphenhydramine HCl 75 mg/Lidocaine 30 ml 0 ml PO Q2H PRN PRN Reason: Mouth/Throat Pain Cyclobenzaprine HCl (Flexeril) 10 mg PO TID [facility] Last Admin: 06/12/17 13:27 Dose: 10 mg Ibuprofen (Motrin Tab) 400 mg PO Q6H PRN PRN Reason: Pain, Mild (1-3) Montelukast Sodium (Singulair) 10 mg PO HS [facility] Oxycodone/Acetaminophen (Percocet 10/325 Mg Tab) 1 tab PO Q4H PRN PRN Reason: Pain, severe (8-10) Pantoprazole Sodium (Protonix Inj) 40 mg IVP DAILY [facility] Last Admin: 06/12/17 09:33 Dose: 40 mg Results - Vital Signs Recent Vital Signs: Last Vital Signs Temp 97.9 F 06/12/17 12:00 Pulse 72 06/12/17 14:00 Resp 18 06/12/17 12:00 BP 116/70 06/12/17 12:00 Pulse Ox 94 L 06/12/17 05:37 - Labs Result Diagrams: 06/12/17 07:45 06/12/17 06:30 Labs: Laboratory Results - last 24 hr 06/12/17 06/12/17 06/12/17 01:50 06:30 07:45 WBC 4.4 L RBC 3.87 Hgb 12.7 Hct 36.9 MCV 95.3 MCH 32.8 MCHC 34.4 RDW 13.5 Plt Count 250 MPV 9.1 Gran % 55.4 Lymph % (Auto) 31.4 [place] % (Auto) 10.9 H Eos % (Auto) 2.1 Baso % (Auto) 0.2 Gran # 2.43 Lymph # 1.4 [place] # 0.5 Eos # 0.1 Baso # 0.01 Sodium 140 Potassium 3.6 Chloride 104 Carbon Dioxide 28 Anion Gap 12 BUN 7 Creatinine 0.6 Est GFR ( Amer) > 60 Est GFR (Non-Af Amer) > 60 Random Glucose 80 Calcium 9.1 Total Bilirubin 0.7 AST 30 ALT 22 Alkaline Phosphatase 63 Total Protein 6.8 Albumin 3.8 Globulin 3.0 Albumin/Globulin Ratio 1.3 Urine Color Yellow Urine Appearance Sl cloudy Urine pH 6.0 Ur Specific [place] 1.010 Urine Protein Negative Urine Glucose (UA) Negative Urine Ketones Trace H Urine Blood Small H Urine Nitrate Negative Urine Bilirubin Negative Urine Urobilinogen 0.2 Ur Leukocyte Esterase Small H Urine RBC 0 - 2 Urine WBC 1 - 3 Ur Epithelial Cells 0 - 2 Attending/Attestation - Attestation I have personally seen and examined this patient.: Yes I have fully participated in the care of the patient.: Yes I have reviewed all pertinent clinical information: Yes
[2017-06-12 15:41] VITALS: RESP 18
--- NOTE | 2017-06-12 17:34 | CP.PCM.DIS ---
<Jamalmaria antoniaNando patel - Last Filed: 06/12/17 17:17> Provider - Provider Date of Admission: 06/12/17 01:39 Attending physician: Taylor Waite MD Primary care physician: Ricki Clayton MD Consults: Neurology: Dr. Tariq Lr Time Spent in preparation of Discharge (in minutes): 30 Diagnosis - Discharge Diagnosis (1) Cervicogenic headache Status: Acute Hospital Course - Lab Results Lab Results: Most Recent Lab Values WBC 4.4 10^3/ul (4.5-11.0) L 06/12/17 07:45 RBC 3.87 10^6/uL (3.5-6.1) 06/12/17 07:45 Hgb 12.7 g/dL (12.0-16.0) 06/12/17 07:45 Hct 36.9 % (36.0-48.0) 06/12/17 07:45 MCV 95.3 fl (80.0-105.0) 06/12/17 07:45 MCH 32.8 pg (25.0-35.0) 06/12/17 07:45 MCHC 34.4 g/dl (31.0-37.0) 06/12/17 07:45 RDW 13.5 % (11.5-14.5) 06/12/17 07:45 Plt Count 250 10^3/uL (120.0-450.0) 06/12/17 07:45 MPV 9.1 fl (7.0-11.0) 06/12/17 07:45 Gran % 55.4 % (50.0-68.0) 06/12/17 07:45 Lymph % (Auto) 31.4 % (22.0-35.0) 06/12/17 07:45 [place] % (Auto) 10.9 % (1.0-6.0) H 06/12/17 07:45 Eos % (Auto) 2.1 % (1.5-5.0) 06/12/17 07:45 Baso % (Auto) 0.2 % (0.0-3.0) 06/12/17 07:45 Gran # 2.43 (1.4-6.5) 06/12/17 07:45 Lymph # 1.4 (1.2-3.4) 06/12/17 07:45 [place] # 0.5 (0.1-0.6) 06/12/17 07:45 Eos # 0.1 (0.0-0.7) 06/12/17 07:45 Baso # 0.01 K/mm3 (0.0-2.0) 06/12/17 07:45 Sodium 140 mmol/L (132-148) 06/12/17 06:30 Potassium 3.6 mmol/L (3.6-5.0) 06/12/17 06:30 Chloride 104 mmol/L (98-107) 06/12/17 06:30 Carbon Dioxide 28 mmol/L (21-33) 06/12/17 06:30 Anion Gap 12 (10-20) 06/12/17 06:30 BUN 7 mg/dL (7-21) 06/12/17 06:30 Creatinine 0.6 mg/dL (0.5-1.4) 06/12/17 06:30 Est GFR ( Amer) > 60 06/12/17 06:30 Est GFR (Non-Af Amer) > 60 06/12/17 06:30 Random Glucose 80 mg/dL (70-110) 06/12/17 06:30 Calcium 9.1 mg/dL (8.4-10.5) 06/12/17 06:30 Magnesium 1.9 mg/dL (1.7-2.2) 06/12/17 00:10 Total Bilirubin 0.7 mg/dL (0.2-1.3) 06/12/17 06:30 AST 30 U/L (15-39) 06/12/17 06:30 ALT 22 U/L (7-56) 06/12/17 06:30 Alkaline Phosphatase 63 U/L (38-133) 06/12/17 06:30 Lactate Dehydrogenase 467 U/L (333-699) 06/12/17 00:10 Total Creatine Kinase 69 U/L (35-230) 06/12/17 00:10 Troponin I < 0.01 ng/mL 06/12/17 00:10 Total Protein 6.8 g/dL (5.8-8.3) 06/12/17 06:30 Albumin 3.8 g/dL (3.0-4.8) 06/12/17 06:30 Globulin 3.0 gm/dL 06/12/17 06:30 Albumin/Globulin Ratio 1.3 (1.1-1.8) 06/12/17 06:30 Urine Color Yellow (YELLOW) 06/12/17 01:50 Urine Appearance Sl cloudy (CLEAR) 06/12/17 01:50 Urine pH 6.0 (4.7-8.0) 06/12/17 01:50 Ur Specific [place] 1.010 (1.005-1.035) 06/12/17 01:50 Urine Protein Negative mg/dL (<30 mg/dL) 06/12/17 01:50 Urine Glucose (UA) Negative mg/dL (NEGATIVE) 06/12/17 01:50 Urine Ketones Trace mg/dL (NEGATIVE) H 06/12/17 01:50 Urine Blood Small (NEGATIVE) H 06/12/17 01:50 Urine Nitrate Negative (NEGATIVE) 06/12/17 01:50 Urine Bilirubin Negative (NEGATIVE) 06/12/17 01:50 Urine Urobilinogen 0.2 E.U./dL (<1 E.U./dL) 06/12/17 01:50 Ur Leukocyte Esterase Small [place]acey/uL (NEGATIVE) H 06/12/17 01:50 Urine RBC 0 - 2 /hpf (0-2) 06/12/17 01:50 Urine WBC 1 - 3 /hpf (0-6) 06/12/17 01:50 Ur Epithelial Cells 0 - 2 /hpf (0-5) 06/12/17 01:50 Calcium Oxalate Crystal Cancelled 06/12/17 00:30 Uric Acid Crystals Cancelled 06/12/17 00:30 Triple Phos Crystals Cancelled 06/12/17 00:30 Other Crystals Cancelled 06/12/17 00:30 Amorphous Sediment Cancelled 06/12/17 00:30 Urine Bacteria Cancelled 06/12/17 00:30 Hyaline Casts Cancelled 06/12/17 00:30 Fine Granular Casts Cancelled 06/12/17 00:30 Coarse Granular Casts Cancelled 06/12/17 00:30 Waxy Casts Cancelled 06/12/17 00:30 RBC Casts Cancelled 06/12/17 00:30 WBC Casts Cancelled 06/12/17 00:30 Urine Other Cancelled 06/12/17 00:30 - Hospital Course Hospital Course: Patient is a 52 year old female with past medical history of asthma, COPD, HTN, hx of [place] Palsy(right sided) and chronic neck/back pain who presented to the [facility] ED complaining of new onset left sided neck pain and left sided facial drooping. A CT head was preformed showing no acute intracranial hemorrhage, or suspicious mass effect. Cervical spine xray was preformed showing no obvious fracture or misalignment. Swallow study was preformed and patient noted to pass in ED. The patient was admitted for observation. Neurology was consulted and the patient was evaluated to have suspected cervicogenic headache and deemed neurologically stable for discharge with plan for outpatient follow up with physical therapy. Patient with known history of COPD was treated with duoneb treatments. Patient educated on smoking cessation. Patient noted to have thrush on her tongue and was given magic mouthwash for suspected thrush. - Date & Time of H&P Date of H&P: 06/12/17 Time of H&P: 02:35 Discharge Exam - Head Exam Head Exam: ATRAUMATIC, NORMOCEPHALIC Additional comments: Facial drooping of right side - Eye Exam Eye Exam: EOMI, PERRL - ENT Exam ENT Exam: Mucous Membranes Moist, Normal Exam Additional comments: tongue noted to have white plaques bilaterally - Neck Exam Neck exam: Tenderness Additional comments: bilateral neck pain with L>R - Respiratory Exam Respiratory Exam: Wheezes, NORMAL BREATHING PATTERN - Cardiovascular Exam Cardiovascular Exam: REGULAR RHYTHM, +S1, +S2 - GI/Abdominal Exam GI & Abdominal Exam: Normal Bowel Sounds, Soft - Extremities Exam Extremities exam: full ROM, normal capillary refill - Neurological Exam Neurological exam: Alert, CN II-XII Intact, Oriented x3 - Psychiatric Exam Psychiatric exam: Normal Affect, Normal Mood - Skin Skin Exam: Dry, Normal Color, Warm Discharge Plan - Discharge Medications Prescriptions: Gabapentin 400 mg PO DAILY #30 capsule - Follow Up Plan Condition: STABLE Disposition: HOME/ ROUTINE Instructions: Transient Ischemic Attack (DC), Pneumococcal Vaccine for Adults ( DC), Kang Palsy (DC), Influenza Vaccine (DC) Additional Instructions: 1. Follow up with your PMD, Dr. Clayton in one week 2. Follow up with your neurologist, Dr. Lr in one week 3. Take your medications as prescribed. 3. Return to emergency room in worsening of your symptoms occur. Referrals: Ricki Clayton MD [Primary Care Provider] - <Taylor Waite - Last Filed: 06/12/17 18:01> Provider - Provider Date of Admission: 06/12/17 01:39 Attending physician: Taylor Waite MD Primary care physician: Ricki Clayton MD Hospital Course - Lab Results Lab Results: Most Recent Lab Values WBC 4.4 10^3/ul (4.5-11.0) L 06/12/17 07:45 RBC 3.87 10^6/uL (3.5-6.1) 06/12/17 07:45 Hgb 12.7 g/dL (12.0-16.0) 06/12/17 07:45 Hct 36.9 % (36.0-48.0) 06/12/17 07:45 MCV 95.3 fl (80.0-105.0) 06/12/17 07:45 MCH 32.8 pg (25.0-35.0) 06/12/17 07:45 MCHC 34.4 g/dl (31.0-37.0) 06/12/17 07:45 RDW 13.5 % (11.5-14.5) 06/12/17 07:45 Plt Count 250 10^3/uL (120.0-450.0) 06/12/17 07:45 MPV 9.1 fl (7.0-11.0) 06/12/17 07:45 Gran % 55.4 % (50.0-68.0) 06/12/17 07:45 Lymph % (Auto) 31.4 % (22.0-35.0) 06/12/17 07:45 [place] % (Auto) 10.9 % (1.0-6.0) H 06/12/17 07:45 Eos % (Auto) 2.1 % (1.5-5.0) 06/12/17 07:45 Baso % (Auto) 0.2 % (0.0-3.0) 06/12/17 07:45 Gran # 2.43 (1.4-6.5) 06/12/17 07:45 Lymph # 1.4 (1.2-3.4) 06/12/17 07:45 [place] # 0.5 (0.1-0.6) 06/12/17 07:45 Eos # 0.1 (0.0-0.7) 06/12/17 07:45 Baso # 0.01 K/mm3 (0.0-2.0) 06/12/17 07:45 Sodium 140 mmol/L (132-148) 06/12/17 06:30 Potassium 3.6 mmol/L (3.6-5.0) 06/12/17 06:30 Chloride 104 mmol/L (98-107) 06/12/17 06:30 Carbon Dioxide 28 mmol/L (21-33) 06/12/17 06:30 Anion Gap 12 (10-20) 06/12/17 06:30 BUN 7 mg/dL (7-21) 06/12/17 06:30 Creatinine 0.6 mg/dL (0.5-1.4) 06/12/17 06:30 Est GFR ( Amer) > 60 06/12/17 06:30 Est GFR (Non-Af Amer) > 60 06/12/17 06:30 Random Glucose 80 mg/dL (70-110) 06/12/17 06:30 Calcium 9.1 mg/dL (8.4-10.5) 06/12/17 06:30 Magnesium 1.9 mg/dL (1.7-2.2) 06/12/17 00:10 Total Bilirubin 0.7 mg/dL (0.2-1.3) 06/12/17 06:30 AST 30 U/L (15-39) 06/12/17 06:30 ALT 22 U/L (7-56) 06/12/17 06:30 Alkaline Phosphatase 63 U/L (38-133) 06/12/17 06:30 Lactate Dehydrogenase 467 U/L (333-699) 06/12/17 00:10 Total Creatine Kinase 69 U/L (35-230) 06/12/17 00:10 Troponin I < 0.01 ng/mL 06/12/17 00:10 Total Protein 6.8 g/dL (5.8-8.3) 06/12/17 06:30 Albumin 3.8 g/dL (3.0-4.8) 06/12/17 06:30 Globulin 3.0 gm/dL 06/12/17 06:30 Albumin/Globulin Ratio 1.3 (1.1-1.8) 06/12/17 06:30 Urine Color Yellow (YELLOW) 06/12/17 01:50 Urine Appearance Sl cloudy (CLEAR) 06/12/17 01:50 Urine pH 6.0 (4.7-8.0) 06/12/17 01:50 Ur Specific [place] 1.010 (1.005-1.035) 06/12/17 01:50 Urine Protein Negative mg/dL (<30 mg/dL) 06/12/17 01:50 Urine Glucose (UA) Negative mg/dL (NEGATIVE) 06/12/17 01:50 Urine Ketones Trace mg/dL (NEGATIVE) H 06/12/17 01:50 Urine Blood Small (NEGATIVE) H 06/12/17 01:50 Urine Nitrate Negative (NEGATIVE) 06/12/17 01:50 Urine Bilirubin Negative (NEGATIVE) 06/12/17 01:50 Urine Urobilinogen 0.2 E.U./dL (<1 E.U./dL) 06/12/17 01:50 Ur Leukocyte Esterase Small Stacey/uL (NEGATIVE) H 06/12/17 01:50 Urine RBC 0 - 2 /hpf (0-2) 06/12/17 01:50 Urine WBC 1 - 3 /hpf (0-6) 06/12/17 01:50 Ur Epithelial Cells 0 - 2 /hpf (0-5) 06/12/17 01:50 Calcium Oxalate Crystal Cancelled 06/12/17 00:30 Uric Acid Crystals Cancelled 06/12/17 00:30 Triple Phos Crystals Cancelled 06/12/17 00:30 Other Crystals Cancelled 06/12/17 00:30 Amorphous Sediment Cancelled 06/12/17 00:30 Urine Bacteria Cancelled 06/12/17 00:30 Hyaline Casts Cancelled 06/12/17 00:30 Fine Granular Casts Cancelled 06/12/17 00:30 Coarse Granular Casts Cancelled 06/12/17 00:30 Waxy Casts Cancelled 06/12/17 00:30 RBC Casts Cancelled 06/12/17 00:30 WBC Casts Cancelled 06/12/17 00:30 Urine Other Cancelled 06/12/17 00:30 Attending/Attestation - Attestation I have personally seen and examined this patient.: Yes I have fully participated in the care of the patient.: Yes I have reviewed all pertinent clinical information, including history, physical exam and plan: Yes Notes (Text): 06/12/17 17:58 attending note; Patient seen and examined with resident. Patient is a 52 year old female with past medical history of asthma, COPD, HTN, hx of [place] Palsy(right sided) and chronic neck/back pain who presented to the [facility] ED complaining of Headache and neck pain. CT head is negative. Cervical spine x-rays negative. The patient had extensive workup done last year including MRI/MRA of the head and neck and cervical spine. No significant abnormality noted. Neurology evaluation appreciated. Suggested to increase Neurontin 400 mg at bedtime. New prescription given. Continue home medication per PMD . diagnosis; Cervicogenic headache COPD Hypertension Kang's palsy Anxiety/depression Dysphagia 06/12/17 18:00
[2017-06-12 17:49] VITALS: BP 105/65; TEMP 98
[2017-06-12 18:19] VITALS: PULSE 72
--- NOTE | 2017-06-12 19:43 | CARD ---
APPROVED REPORT EKG Measurement Heart [id number] <Conclusion> Normal sinus rhythm Normal ECG
== END 2017-06-12 18:17 | disposition home or self-care (01) ==
LOC: ED 20:07 → ERH 06-12 01:39 → 2RSO 06-12 03:44
PROVIDERS: ADMIT Internal Medicine; ATTEND Internal Medicine
DX: G44.89 Other headache syndrome (principal); J44.9 Chronic obstructive pulmonary disease, unspecified; I10 Essential (primary) hypertension; G51.0 Bell's palsy; F32.9 Major depressive disorder, single episode, unspecified; R13.10 Dysphagia, unspecified; B37.0 Candidal stomatitis; F17.210 Nicotine dependence, cigarettes, uncomplicated
CPT/HCPCS: 70450; 72020; 80053; 81001; 82550; 83615; 83735; 84484; 85025; 87086; 92610; 93005; 96374; 96375; 99285; C9113; G0378; G8996; G8997; J1200; J2270

== ENCOUNTER 2017-12-28 16:36 | Emergency (ER) | payer MEDICAID ==
[2017-12-28 16:39] VITALS: BMI 25.0
[2017-12-28 16:52] VITALS: BP 142/87; PULSE 82; RESP 18; TEMP 97.3; O2SAT 98
--- NOTE | 2017-12-28 17:13 | ED PDOC ---
Arrival/HPI - General Chief Complaint: Finger,Hand,&Wrist Time Seen by Provider: 12/28/17 16:46 Historian: Patient - History of Present Illness Narrative History of Present Illness (Text): 12/28/17 17:13 Ms. Davidson is a 52 year old female with a PMH of asthma, COPD, HTN, [place] Palsy (right), and chronic neck and back pain, presents to this ED c/o b/l 2nd and 3rd finger tingling and numbness. Patient admits similar symptoms in the past. Patient stated she has been seen pmd, and pain management doctor for same symptoms in the past. She is currently taking medication for her chronic neck pain including muscle relaxer, and narcotic for her pain. Patient denies MADRID, dizziness, diplopia, dysarthria, dysphagia, sob, cp, abdominal pain, or abnormal gait. Time/Duration: Other (see hpi) Context: Home Past Medical History - Provider Review Nursing Documentation Reviewed: Yes - Past History Past History: No Previous - Infectious Disease Hx of Infectious Diseases: None - Tetanus Immunization Tetanus Immunization: Unknown - Cardiac Hx Cardiac Disorders: No Hx Congestive Heart Failure: No Hx Hypertension: Yes - Pulmonary Hx Asthma: Yes Hx Chronic Obstructive Pulmonary Disease (COPD): Yes (smoker) Hx Pneumonia: No - Neurological HX Cerebrovascular Accident: No Other/Comment: [place] palsy. Neuropathy - HEENT Hx HEENT Disorder: Yes Other/Comment: vocal cord lesions - Renal Hx Renal Failure: No - Endocrine/Metabolic Hx Diabetes Mellitus Type 1: No Hx Diabetes Mellitus Type 2: No Hx Hypothyroidism: No - Hematological/Oncological Hx Cancer: No - Integumentary Hx Dermatological Disorder: No - Musculoskeletal/Rheumatological Hx Arthritis: Yes Hx Back Pain: Yes Hx Rheumatoid Arthritis: Yes - Gastrointestinal Hx Gastroesophageal Reflux: No - Genitourinary/Gynecological Hx Genitourinary Disorders: Yes Other/Comment: Tubal ligation, menopausal bleeding - Psychiatric Hx Psychophysiologic Disorder: Yes Hx Anxiety: Yes Hx Panic Disorder: Yes Hx Substance Use: No - Past Surgical History Past Surgical History: Unable to Obtain - Surgical History Hx Tubal Ligation: Yes Other/Comment: vocal cord surgery - Anesthesia Hx Anesthesia: Yes Hx Anesthesia Reactions: No Hx Malignant Hyperthermia: No - Suicidal Assessment Feels Threatened In Home Enviroment: No Family/Social History - Physician Review Nursing Documentation Reviewed: Yes Family/Social History: Other (noncontributory) Smoking Status: Light Smoker < 10 Cigarettes Daily Hx Alcohol Use: No Hx Substance Use: No Hx Substance Use Treatment: No Allergies/Home Meds Allergies/Adverse Reactions: Allergies No Known Allergies Allergy (Verified 11/01/16 16:40) Home Medications: Home Meds Medication Instructions Recorded Confirmed Montelukast [Singulair] 10 mg PO DAILY 03/09/12 12/28/17 Albuterol 0.083% [Albuterol 0.083% 3 ml IH PRN PRN 06/07/13 12/28/17 Inhal Aida (2.5 mg/3 ml) UD] Carvedilol [Coreg] 6.25 mg PO BID 06/02/15 12/28/17 Omeprazole [PrilOSEC] 20 mg PO DAILY 06/02/15 12/28/17 Paroxetine HCl [Paxil] 20 mg PO DAILY 06/02/15 12/28/17 carBAMazepine [TEGretol-XR] 200 mg PO BID 06/02/15 12/28/17 clonazePAM [Klonopin] 1 mg PO BID 02/20/16 12/28/17 Albuterol/Ipratropium [Combivent 1 puff IH QID 12/28/17 12/28/17 Respimat] Aspirin [Aspirin Chewable] 1 tab PO DAILY 12/28/17 12/28/17 Gabapentin 600 mg PO DAILY 12/28/17 12/28/17 Ondansetron ODT [Zofran ODT] 1 tab PO QID PRN 12/28/17 12/28/17 amLODIPine [Norvasc] 1 tab PO DAILY 12/28/17 12/28/17 Review of Systems - Review of Systems Constitutional: Normal. absent: Fatigue, Weight Change, Fevers Eyes: Normal ENT: Normal. absent: Sore Throat, Rhinorrhea Respiratory: Normal. absent: SOB, Cough Cardiovascular: Normal. absent: Chest Pain, Palpitations Gastrointestinal: Normal. absent: Abdominal Pain, Nausea, Vomiting Genitourinary Female: Normal. absent: Hematuria Musculoskeletal: Back Pain, Neck Pain, Other (chronic) Skin: Normal Neurological: Other (see hpi). absent: Headache, Dizziness, Focal Weakness, Speech Changes, Facial Droop Endocrine: Normal Hemo/Lymphatic: Normal Psychiatric: Normal Physical Exam Vital Signs Temp Pulse Resp BP Pulse Ox 12/28/17 16:40 97.3 F L 82 18 142/87 98 Temperature: Afebrile Blood Pressure: Normal Pulse: Regular Respiratory Rate: Normal Appearance: Positive for: Well-Appearing, Non-Toxic, Comfortable Pain Distress: None Mental Status: Positive for: Alert and Oriented X 3 - Systems Exam Head: Present: Atraumatic, Normocephalic Pupils: Present: PERRL Extroacular Muscles: Present: EOMI Conjunctiva: Present: Normal Mouth: Present: Moist Mucous Membranes Neck: Present: Normal Range of Motion, Trachea Midline. No: Meningeal Signs, MIDLINE TENDERNESS, Paraspinal Tenderness Respiratory/Chest: Present: Clear to Auscultation, Good Air Exchange. No: Respiratory Distress, Accessory Muscle Use Cardiovascular: Present: Regular Rate and Rhythm, Normal S1, S2. No: Murmurs Abdomen: Present: Normal Bowel Sounds. No: Tenderness, Distention, Peritoneal Signs Back: Present: Normal Inspection Upper Extremity: Present: Normal Inspection, Normal ROM, NORMAL PULSES, Neurovascularly Intact, Capillary Refill < 2s, Norm 2-Pt Discrimination, Other ( no skin rash). No: Cyanosis, Edema Lower Extremity: Present: Normal Inspection, Normal ROM, Capillary Refill < 2 s. No: Edema Neurological: Present: GCS=15, CN II-XII Intact, Speech Normal, Motor Func Grossly Intact, Normal Sensory Function, Normal Cerebellar Funct, Gait Normal, Memory Normal Skin: Present: Warm, Dry, Normal Color. No: Rashes Psychiatric: Present: Alert, Oriented x 3, Normal Insight, Normal Concentration Medical Decision Making - Medication Orders Current Medication Orders: Discontinued Medications Diazepam (Valium) 2 mg PO ONCE ONE PRN Reason: Protocol Stop: 12/28/17 17:19 Ketorolac Tromethamine (Toradol) 60 mg IM STAT STA Stop: 12/28/17 17:18 Last Admin: 12/28/17 17:34 Dose: 60 mg MAR Pain Assessment Document 12/28/17 17:34 (Rec: 12/28/17 17:34 [id number]) Pain Reassessment Is this a pain reassessment? No IM Administration Charges Document 12/28/17 17:34 HP (Rec: 12/28/17 17:34 [id number] Charges for Administration # of IM Administrations 1 Disposition/Present on Arrival - Present on Arrival Any Indicators Present on Arrival: No History of DVT/PE: No History of Uncontrolled Diabetes: No Urinary Catheter: No History of Decub. Ulcer: No History Surgical Site Infection Following: None - Disposition Have Diagnosis and Disposition been Completed?: Yes Diagnosis: Cervical radiculopathy Disposition: HOME/ ROUTINE Disposition Time: 18:24 Patient Plan: Discharge Condition: GOOD Discharge Instructions (ExitCare): Radiculopathy (DC) Additional Instructions: Call private doctor and pain management doctor for follow up visit. Take medication with food as instructed. Return to emergency if symptoms worsen. Prescriptions: Famotidine [Pepcid] 40 mg PO DAILY #10 tablet Naproxen 500 mg PO BID PRN #14 tablet PRN Reason: Pain, Severe (8-10) Referrals: Ricki Clayton MD [Primary Care Provider] - Follow up with primary Forms: [employer] [facility] (Greek)
== END 2017-12-28 19:07 | disposition home or self-care (01) ==
LOC: ED 16:36
DX: M54.12 Radiculopathy, cervical region (principal)
CPT/HCPCS: 96372; 99283; J1885

== ENCOUNTER 2018-04-08 13:34 | Emergency (ER) | payer MEDICAID ==
[2018-04-08 13:35] VITALS: BMI 25.0
[2018-04-08 14:04] VITALS: TEMP 98.3
[2018-04-08] MEDS ORDERED: Albuterol-Ipratrop 3 mg / 0.5 (3 ml) UD IH STA (14:28)
--- NOTE | 2018-04-08 15:56 | ED PDOC ---
Arrival/HPI - General Chief Complaint: Weakness/Neurological Deficit Time Seen by Provider: 04/08/18 14:12 Historian: Patient - History of Present Illness Narrative History of Present Illness (Text): 04/08/18 15:53 52yo female with pmhx of Asthma, chronic neck and back pain secondary to bulging /herniated disc present with complaint of neck pain and b/l arm paresthesia/ pain x few days. Notes that the neck pain is chronic. States she have had the paresthesia in the past and it resolved and then started again few days ago. She also report nonproductive cough x weeks. States she uses albuterol inhaler at home. she also smokes tobacco. She denies She denies chest pain, SOB, fever , chills, focal weakness, recent trauma, fever, rash, nausea, vomiting, visual changes, any other complaint. Past Medical History - Provider Review Nursing Documentation Reviewed: Yes - Past History Past History: No Previous - Infectious Disease Hx of Infectious Diseases: None - Tetanus Immunization Tetanus Immunization: Unknown - Reproductive Menopause: Yes - Cardiac Hx Cardiac Disorders: Yes Hx Hypertension: Yes - Pulmonary Hx Respiratory Disorders: Yes Hx Asthma: Yes Hx Chronic Obstructive Pulmonary Disease (COPD): Yes (smoker) Hx Pneumonia: No - Neurological Hx Neurological Disorder: Yes HX Cerebrovascular Accident: No Other/Comment: [place] palsy. Neuropathy - HEENT Hx HEENT Disorder: Yes Other/Comment: vocal cord polyp - Renal Hx Renal Disorder: No - Endocrine/Metabolic Hx Endocrine Disorders: No - Hematological/Oncological Hx Blood Disorders: No - Integumentary Hx Dermatological Disorder: No - Musculoskeletal/Rheumatological Hx Musculoskeletal Disorders: Yes Hx Arthritis: Yes Hx Back Pain: Yes Hx Rheumatoid Arthritis: Yes - Gastrointestinal Hx Gastrointestinal Disorders: Yes Hx Gastroesophageal Reflux: Yes - Genitourinary/Gynecological Hx Genitourinary Disorders: Yes Other/Comment: Tubal ligation, menopausal bleeding - Psychiatric Hx Psychophysiologic Disorder: Yes Hx Anxiety: Yes Hx Panic Disorder: Yes Hx Substance Use: No - Past Surgical History Past Surgical History: Unable to Obtain - Surgical History Hx Tubal Ligation: Yes Other/Comment: vocal cord surgery - Anesthesia Hx Anesthesia: Yes Hx Anesthesia Reactions: No Hx Malignant Hyperthermia: No - Suicidal Assessment Feels Threatened In Home Enviroment: No Family/Social History - Physician Review Nursing Documentation Reviewed: Yes Family/Social History: Unknown Family HX Smoking Status: Light Smoker < 10 Cigarettes Daily Hx Alcohol Use: No Hx Substance Use: No Hx Substance Use Treatment: No Allergies/Home Meds Allergies/Adverse Reactions: Allergies No Known Allergies Allergy (Verified 04/08/18 13:50) Home Medications: Home Meds Medication Instructions Recorded Confirmed Montelukast [Singulair] 10 mg PO DAILY 03/09/12 04/08/18 Albuterol 0.083% [Albuterol 0.083% 3 ml IH PRN PRN 06/07/13 04/08/18 Inhal Aida (2.5 mg/3 ml) UD] Carvedilol [Coreg] 12.5 mg PO BID 06/02/15 04/08/18 Omeprazole [PrilOSEC] 20 mg PO DAILY 06/02/15 04/08/18 Paroxetine HCl [Paxil] 20 mg PO DAILY 06/02/15 04/08/18 carBAMazepine [TEGretol-XR] 200 mg PO BID 06/02/15 04/08/18 clonazePAM [Klonopin] 1 mg PO BID 02/20/16 04/08/18 Albuterol/Ipratropium [Combivent 1 puff IH QID 12/28/17 04/08/18 Respimat] Aspirin [Aspirin Chewable] 1 tab PO DAILY 12/28/17 04/08/18 Gabapentin 600 mg PO DAILY 12/28/17 04/08/18 Ondansetron ODT [Zofran ODT] 1 tab PO QID PRN 12/28/17 04/08/18 amLODIPine [Norvasc] 1 tab PO DAILY 12/28/17 04/08/18 Baclofen [Lioresal] 20 mg PO TID 04/08/18 04/08/18 Calcium Acetate 1 tab PO BID 04/08/18 04/08/18 Cetirizine HCl 10 mg PO DAILY 04/08/18 04/08/18 Diclofenac Sodium [Voltaren] 75 mg PO BID 04/08/18 04/08/18 Escitalopram [Lexapro] 20 mg PO DAILY 04/08/18 04/08/18 Gabapentin [Neurontin] 1,200 mg PO HS 04/08/18 04/08/18 Morphine [Morphine Extended 15 mg PO BID 04/08/18 04/08/18 Release Tab] Nortriptyline [Pamelor] 50 mg PO DAILY 04/08/18 04/08/18 Oxycodone HCl [Oxycontin] 15 mg PO BID 04/08/18 04/08/18 Review of Systems - Physician Review All systems were reviewed & negative as marked: Yes - Review of Systems Constitutional: Normal Eyes: Normal ENT: Normal Respiratory: Cough. absent: Sputum, Wheezing Cardiovascular: Normal Gastrointestinal: Normal Genitourinary Female: Normal Musculoskeletal: Neck Pain Skin: Normal Neurological: Normal Endocrine: Normal Hemo/Lymphatic: Normal Psychiatric: Normal Physical Exam Vital Signs Reviewed: Yes Vital Signs Temp Pulse Resp BP Pulse Ox 04/08/18 15:57 68 18 114/70 98 04/08/18 13:59 98.3 F 87 16 132/90 95 Temperature: Afebrile Blood Pressure: Normal Pulse: Regular Respiratory Rate: Normal Appearance: Positive for: Well-Appearing, Non-Toxic, Comfortable Pain Distress: None Mental Status: Positive for: Alert and Oriented X 3 - Systems Exam Head: Present: Atraumatic, Normocephalic Pupils: Present: PERRL Extroacular Muscles: Present: EOMI Conjunctiva: Present: Normal Mouth: Present: Moist Mucous Membranes Neck: Present: Normal Range of Motion (With pain on lateral bend to the left), MIDLINE TENDERNESS. No: Meningeal Signs, Paraspinal Tenderness Respiratory/Chest: Present: Good Air Exchange, Wheezes (Diffuse expiratory wheeze). No: Respiratory Distress, Accessory Muscle Use, Decreased Breath Sounds, Rales, Retracting Cardiovascular: Present: Regular Rate and Rhythm, Normal S1, S2. No: Murmurs Abdomen: No: Tenderness, Distention, Peritoneal Signs Back: Present: Normal Inspection Upper Extremity: Present: Normal Inspection. No: Cyanosis, Edema Lower Extremity: Present: Normal Inspection. No: Edema Neurological: Present: GCS=15, CN II-XII Intact, Speech Normal Skin: Present: Warm, Dry, Normal Color. No: Rashes Psychiatric: Present: Alert, Oriented x 3, Normal Insight, Normal Concentration Medical Decision Making ED Course and Treatment: 04/08/18 16:11 PT present to ED for stated history. She report chronic history of neck pain. she noted that she is on Morphine and Oxycodone at home for the pain. She was given Lyrica in ED for neuropathy and her pain improved on re evaluation. She had FROM of her neck. She had no meningeal signs. On re evaluation s/p treatment her lung was CTA b/l. She was not in any respiratory distress. She will be DC home with a rx of Prednisone. Advised to continue with her pain medication as was directed and f/u with her PMD for her neuropathy. - Medication Orders Current Medication Orders: Discontinued Medications Albuterol/Ipratropium (Duoneb 3 Mg/0.5 Mg (3 Ml) Ud) 3 ml IH Q15M STA Stop: 04/08/18 14:29 Last Admin: 04/08/18 14:57 Dose: 3 ml Prednisone (Prednisone Tab) 60 mg PO STAT ONE Stop: 04/08/18 14:30 Last Admin: 04/08/18 14:57 Dose: 60 mg Pregabalin (Lyrica) 75 mg PO ONCE STA Stop: 04/08/18 14:30 Last Admin: 04/08/18 15:48 Dose: 75 mg Disposition/Present on Arrival - Present on Arrival Any Indicators Present on Arrival: No History of DVT/PE: No History of Uncontrolled Diabetes: No Urinary Catheter: No History of Decub. Ulcer: No History Surgical Site Infection Following: None - Disposition Have Diagnosis and Disposition been Completed?: Yes Diagnosis: Radiculopathy, Asthma attack Disposition: HOME/ ROUTINE Disposition Time: 16:00 Patient Plan: Discharge Patient Problems: Current Active Problems Problem Status Onset Asthma attack Acute Radiculopathy Acute Condition: STABLE Discharge Instructions (ExitCare): Asthma, Adult (DC), Radiculopathy (DC) Additional Instructions: Follow up with your Doctor Return to ED for any new or worsening symptoms Prescriptions: Prednisone 50 mg PO DAILY #5 tablet Referrals: Ricki Clayton MD [Primary Care Provider] - Follow up with primary Forms: [facility] (Kinyarwanda)
[2018-04-08 15:57] VITALS: RESP 18
[2018-04-08 16:19] VITALS: BP 130/87; PULSE 80; O2SAT 100
== END 2018-04-08 16:18 | disposition home or self-care (01) ==
LOC: ED 13:34
DX: J45.909 Unspecified asthma, uncomplicated (principal); M54.12 Radiculopathy, cervical region; F17.210 Nicotine dependence, cigarettes, uncomplicated

== ENCOUNTER 2018-04-23 18:35 | Emergency (ER) | payer MEDICAID ==
[2018-04-23 18:35] VITALS: BMI 25.0
[2018-04-23 18:49] VITALS: RESP 18; TEMP 98.1
[2018-04-23] MEDS ORDERED: Sodium Chloride 0.9% 500 ML IV STA (19:09)
--- NOTE | 2018-04-23 19:32 | ED PDOC ---
Arrival/HPI - General Chief Complaint: GI Problem Time Seen by Provider: 04/23/18 18:55 Historian: Patient - History of Present Illness Narrative History of Present Illness (Text): 53 year old female presents with 5 days of abdominal pain, not associated with food intake and blood from rectum from this morning. Patient states she called her PMD Dr. Clayton and explained she had blood after wiping herself in the bathroom and he advised her to come in. Patient has appointment for colonoscopy. Colonoscopy 3 years ago was normal according to her. Patient denies chest pain, shortness of breath, palpiations, fever, chills, nausea, vomiting, or any other complaints at this time. 04/23/18 19:30 Time/Duration: < week Past Medical History - Provider Review Nursing Documentation Reviewed: Yes - Past History Past History: No Previous - Infectious Disease Hx of Infectious Diseases: None - Tetanus Immunization Tetanus Immunization: Unknown - Cardiac Hx Cardiac Disorders: Yes Hx Hypertension: Yes - Pulmonary Hx Respiratory Disorders: Yes Hx Asthma: Yes Hx Chronic Obstructive Pulmonary Disease (COPD): Yes (smoker) - Neurological Hx Neurological Disorder: Yes Other/Comment: [place] palsy. Neuropathy - HEENT Other/Comment: vocal cord polyp - Renal Hx Renal Disorder: No - Endocrine/Metabolic Hx Endocrine Disorders: No - Hematological/Oncological Hx Blood Disorders: No - Integumentary Hx Dermatological Disorder: No - Musculoskeletal/Rheumatological Hx Musculoskeletal Disorders: Yes Hx Arthritis: Yes Hx Back Pain: Yes Hx Rheumatoid Arthritis: Yes - Gastrointestinal Hx Gastroesophageal Reflux: Yes - Genitourinary/Gynecological Hx Genitourinary Disorders: Yes Other/Comment: Tubal ligation, menopausal bleeding - Psychiatric Hx Psychophysiologic Disorder: Yes Hx Anxiety: Yes Hx Panic Disorder: Yes Hx Substance Use: No - Past Surgical History Past Surgical History: Unable to Obtain - Surgical History Hx Tubal Ligation: Yes Other/Comment: vocal cord surgery - Anesthesia Hx Anesthesia: Yes Hx Anesthesia Reactions: No Hx Malignant Hyperthermia: No - Suicidal Assessment Feels Threatened In Home Enviroment: No Family/Social History - Physician Review Nursing Documentation Reviewed: Yes Family/Social History: No Known Family HX Smoking Status: Light Smoker < 10 Cigarettes Daily Hx Alcohol Use: No Hx Substance Use: No Hx Substance Use Treatment: No Allergies/Home Meds Allergies/Adverse Reactions: Allergies No Known Allergies Allergy (Verified 04/23/18 18:50) Home Medications: Home Meds Medication Instructions Recorded Confirmed Montelukast [Singulair] 10 mg PO DAILY 03/09/12 04/23/18 Albuterol 0.083% [Albuterol 0.083% 3 ml IH PRN PRN 06/07/13 04/23/18 Inhal Aida (2.5 mg/3 ml) UD] Carvedilol [Coreg] 12.5 mg PO BID 06/02/15 04/23/18 Omeprazole [PrilOSEC] 20 mg PO DAILY 06/02/15 04/23/18 Paroxetine HCl [Paxil] 20 mg PO DAILY 06/02/15 04/23/18 carBAMazepine [TEGretol-XR] 200 mg PO BID 06/02/15 04/23/18 clonazePAM [Klonopin] 1 mg PO BID 02/20/16 04/23/18 Albuterol/Ipratropium [Combivent 1 puff IH QID 12/28/17 04/23/18 Respimat] Aspirin [Aspirin Chewable] 1 tab PO DAILY 12/28/17 04/23/18 Gabapentin 600 mg PO DAILY 12/28/17 04/23/18 Ondansetron ODT [Zofran ODT] 1 tab PO QID PRN 12/28/17 04/23/18 amLODIPine [Norvasc] 1 tab PO DAILY 12/28/17 04/23/18 Baclofen [Lioresal] 20 mg PO TID 04/08/18 04/23/18 Calcium Acetate 1 tab PO BID 04/08/18 04/23/18 Cetirizine HCl 10 mg PO DAILY 04/08/18 04/23/18 Diclofenac Sodium [Voltaren] 75 mg PO BID 04/08/18 04/23/18 Escitalopram [Lexapro] 20 mg PO DAILY 04/08/18 04/23/18 Gabapentin [Neurontin] 1,200 mg PO HS 04/08/18 04/23/18 Morphine [Morphine Extended 15 mg PO BID 04/08/18 04/23/18 Release Tab] Nortriptyline [Pamelor] 50 mg PO DAILY 04/08/18 04/23/18 Oxycodone HCl [Oxycontin] 15 mg PO BID 04/08/18 04/23/18 Review of Systems - Review of Systems Constitutional: Normal. absent: Weight Change, Fevers, Night Sweats Eyes: Normal ENT: Normal Respiratory: Normal. absent: SOB, Cough Cardiovascular: Normal. absent: Chest Pain, Palpitations, Syncope Gastrointestinal: Abdominal Pain, Diarrhea, Other (blood per rectum) Genitourinary Female: Normal Musculoskeletal: Normal Skin: Normal Neurological: Normal. absent: Headache, Dizziness Physical Exam Vital Signs Reviewed: Yes Vital Signs Temp Pulse Resp BP Pulse Ox 04/24/18 03:35 70 18 122/82 100 04/24/18 03:05 98.1 F 68 18 118/85 98 04/23/18 21:12 98.1 F 89 18 135/80 99 04/23/18 18:42 98.1 F 93 H 18 133/88 95 Temperature: Afebrile Blood Pressure: Normal Pulse: Tachycardic Respiratory Rate: Normal Appearance: Positive for: Well-Appearing, Non-Toxic, Comfortable Pain Distress: None Mental Status: Positive for: Alert and Oriented X 3 - Systems Exam Head: Present: Atraumatic, Normocephalic Pupils: Present: PERRL Extroacular Muscles: Present: EOMI Conjunctiva: Present: Normal Mouth: Present: Moist Mucous Membranes Neck: Present: Normal Range of Motion Respiratory/Chest: Present: Clear to Auscultation Cardiovascular: Present: Regular Rate and Rhythm, Normal S1, S2 Abdomen: Present: Tenderness. No: Rebound, Guarding Rectal: Present: Normal Rectal Tone. No: Occult Blood, Rectal Tenderness, Gross Blood, Hemorrhoids Upper Extremity: No: Edema Lower Extremity: No: Edema Neurological: Present: GCS=15, CN II-XII Intact Skin: Present: Warm Psychiatric: Present: Alert, Oriented x 3 Medical Decision Making ED Course and Treatment: Plan -CBC, rectal exam, type and screen -reasses 04/23/18 19:35 -rectal exam did not show any gross blood, showed brown stool -CBC WNL, will order CT abdomen and pelvis for LUQ tenderness 04/23/18 21:00 - Lab Interpretations Lab Results: 04/23/18 20:34 04/23/18 20:34 Lab Results 04/23/18 21:47: Urine Color Yellow, Urine Appearance Clear, Urine pH 5.5, Ur Specific [place] <= 1.005, Urine Protein Negative, Urine Glucose (UA) Negative, Urine Ketones Negative, Urine Blood Trace-intact H, Urine Nitrate Negative, Urine Bilirubin Negative, Urine Urobilinogen 0.2, Ur Leukocyte Esterase Negative , Urine RBC 1 - 3, Urine WBC 0 - 2, Ur Epithelial Cells 4 - 5, Urine Bacteria Few, Urine HCG, Qual Negative 04/23/18 20:34: Blood Type A POSITIVE, Antibody Screen Negative, BBK History Checked Patient has bt 04/23/18 20:34: Sodium 141, Potassium 4.3, Chloride 103, Carbon Dioxide 30, Anion Gap 13, BUN 11, Creatinine 0.5 L, Est GFR ( Amer) > 60, Est GFR ( Non-Af Amer) > 60, Random Glucose 78, Calcium 8.5, Magnesium 2.2, Total Bilirubin 0.2, AST 30, ALT 23, Alkaline Phosphatase 67, Total Protein 6.8, Albumin 4.0, Globulin 2.8, Albumin/Globulin Ratio 1.4, Lipase 23 04/23/18 20:34: PT 11.1, INR 0.97, APTT 28.0 04/23/18 20:34: WBC 7.7 D, RBC 3.86, Hgb 12.6, Hct 37.3, MCV 96.6, MCH 32.6, MCHC 33.8, RDW 14.6 H, Plt Count 294, MPV 8.9, Gran % 62.9, Lymph % (Auto) 26.6 , [place] % (Auto) 6.5 H, Eos % (Auto) 3.6, Baso % (Auto) 0.4, Gran # 4.84, Lymph # (Auto) 2.1, [place] # (Auto) 0.5, Eos # (Auto) 0.3, Baso # (Auto) 0.03 I have reviewed the lab results: Yes - RAD Interpretation Radiology Orders: 04/23/18 20:59 ABD & PELVIS IV CONTRAST ONLY [CT] Stat - Medication Orders Current Medication Orders: Discontinued Medications Sodium Chloride (Sodium Chloride 0.9%) 500 mls @ 1,000 mls/hr IV .Q30M STA Stop: 04/23/18 19:38 Last Admin: 04/23/18 20:22 Dose: 1,000 mls/hr eMAR Start Stop Document 04/23/18 20:22 LA (Rec: 04/23/18 21:11 LA [id number]) Intravenous Solution Start Date 04/23/18 Start Time 20:22 End Date 04/23/18 End time 20:52 Total Infusion Time 30 Disposition/Present on Arrival - Present on Arrival Any Indicators Present on Arrival: No History of DVT/PE: No History of Uncontrolled Diabetes: No Urinary Catheter: No History of Decub. Ulcer: No History Surgical Site Infection Following: None - Disposition Have Diagnosis and Disposition been Completed?: Yes Diagnosis: Colitis Disposition: AGAINST MEDICAL ADVICE Disposition Time: 01:00 Condition: FAIR Forms: [employer] (Turkmen)
[2018-04-23 20:47] LABS: BASO # 0.03 K/mm3 (0.0-2.0); BASO % 0.4 % (0.0-3.0); EOS # 0.3 (0.0-0.7); EOS % 3.6 % (1.5-5.0); GRAN # 4.84 (1.4-6.5); GRAN % 62.9 % (50.0-68.0); HEMOGLOBIN 12.6 g/dL (12.0-16.0); LYMPH # 2.1 (1.2-3.4); LYMPH % 26.6 % (22.0-35.0); MEAN CELL VOLUME 96.6 fl (80.0-105.0); MEAN CORPUSCULAR HEMOGLOBIN 32.6 pg (25.0-35.0); MEAN CORPUSCULAR HGB CONC 33.8 g/dl (31.0-37.0); MEAN PLATELET VOLUME 8.9 fl (7.0-11.0); MONO # 0.5 (0.1-0.6); MONO % 6.5 % (1.0-6.0); RBC 3.86 10^6/uL (3.5-6.1); RED CELL DISTRIBUTION WIDTH 14.6 % (11.5-14.5); WHITE BLOOD COUNT 7.7 10^3/ul (4.5-11.0)
[2018-04-23 20:57] LABS: ALB/GLOB RATIO 1.4 (1.1-1.8); ALT/SGPT 23 U/L (7-56); AST/SGOT 30 U/L (14-36); BLOOD UREA NITROGEN 11 mg/dL (7-21); CALCIUM 8.5 mg/dL (8.4-10.5); GFR AFRICAN-AMERICAN > 60; GFR NON-AFRICAN AMERICAN > 60; LIPASE 23 U/L (23-300)
[2018-04-23 21:10] LABS: INR 0.97 (0.93-1.08); PROTHROMBIN TIME 11.1 SECONDS (9.4-12.5)
[2018-04-23 21:58] LABS: PH,URINE 5.5 (4.7-8.0); URINE BILIRUBIN NEGATIVE (NEGATIVE); URINE BLOOD TRACE-INTACT (NEGATIVE); URINE GLUCOSE (UA) NEGATIVE (NEGATIVE); URINE LEUKOCYTE ESTERASE NEGATIVE Leu/uL (NEGATIVE); URINE PROTEIN NEGATIVE mg/dL (<30 mg/dL); URINE UROBILINOGEN 0.2 E.U./dL (<1 E.U./dL)
[2018-04-23 22:00] LABS: HCG,QUALITATIVE URINE NEGATIVE (NEGATIVE); URINE APPEARANCE CLEAR (CLEAR); URINE COLOR YELLOW (YELLOW)
[2018-04-23 22:03] LABS: URINE BACTERIA FEW (NEG); URINE WBC 0 - 2 /hpf (0-6)
[2018-04-23] MEDS ORDERED: Iohexol 350 MG/100 ML VIAL ONE (23:31)
--- NOTE | 2018-04-24 00:23 | ED PDOC ---
Physical Exam Vital Signs Temp Pulse Resp BP Pulse Ox 04/24/18 03:05 98.1 F 68 18 118/85 98 04/23/18 21:12 98.1 F 89 18 135/80 99 04/23/18 18:42 98.1 F 93 H 18 133/88 95 Medical Decision Making ED Course and Treatment: 04/23/18 23:00 Case endorsed to me by Dr. Dasilva, pending CT scan, re-evaluation, and final disposition. 04/24/18 01:25 CT Abdomen and Pelvis shows: Lung bases: No consolidation. ABDOMEN: Liver: Unremarkable. No mass. Gallbladder and bile ducts: Unremarkable. No calcified stones. No ductal dilation. Pancreas: Unremarkable. No ductal dilation. Spleen: Unremarkable. No splenomegaly. Adrenals: Unremarkable. No mass. Kidneys and ureters: Symmetric enhancement. No hydronephrosis. Stomach and bowel: Apparent thickening of the descending and sigmoid colon, indicative of infectious/inflammatory colitis versus less likely ischemic colitis. Correlate clinically. PELVIS: Appendix: No findings to suggest acute appendicitis. Bladder: Partially contracted. Reproductive: Unremarkable as visualized. ABDOMEN and PELVIS: Intraperitoneal space: Unremarkable. No free air. No drainable fluid collection. Bones/joints: Spondylosis. No dislocation. Soft tissues: Tiny fat containing umbilical hernia. Vasculature: Unremarkable. No abdominal aortic aneurysm. Lymph nodes: Unremarkable. No enlarged lymph nodes. IMPRESSION: Apparent thickening of the descending and sigmoid colon, indicative of infectious/inflammatory colitis versus less likely ischemic colitis. Correlate clinically. 04/24/18 03:[address] Clayton, who requests pt go to hospitalist service. 04/24/18 03:44 The patient is choosing to leave against medical advice. I have personally explained to the patient that choosing to do so may result in permanent bodily harm or . I have discussed at great length that without further evaluation and monitoring there may be unforeseen circumstances and/or deterioration causing permanent bodily harm or as a result of their choice. The patient is alert, oriented, and shows the mental capacity to make clear decisions regarding the patients health care at this time. The patient continues to wish to leave against medical advice. In light of the patients decision to leave against medical advice, patient is aware of the importance to following up as instructed. The patient has been advised that they should return to the emergency room immediately if they change their mind at any time, or if their condition begins to change or worsen in any way.. - Lab Interpretations Lab Results: 04/23/18 20:34 04/23/18 20:34 Lab Results 04/23/18 21:47: Urine Color Yellow, Urine Appearance Clear, Urine pH 5.5, Ur Specific [place] <= 1.005, Urine Protein Negative, Urine Glucose (UA) Negative, Urine Ketones Negative, Urine Blood Trace-intact H, Urine Nitrate Negative, Urine Bilirubin Negative, Urine Urobilinogen 0.2, Ur Leukocyte Esterase Negative , Urine RBC 1 - 3, Urine WBC 0 - 2, Ur Epithelial Cells 4 - 5, Urine Bacteria Few, Urine HCG, Qual Negative 04/23/18 20:34: Blood Type A POSITIVE, Antibody Screen Negative, BBK History Checked Patient has bt 04/23/18 20:34: Sodium 141, Potassium 4.3, Chloride 103, Carbon Dioxide 30, Anion Gap 13, BUN 11, Creatinine 0.5 L, Est GFR ( Amer) > 60, Est GFR ( Non-Af Amer) > 60, Random Glucose 78, Calcium 8.5, Magnesium 2.2, Total Bilirubin 0.2, AST 30, ALT 23, Alkaline Phosphatase 67, Total Protein 6.8, Albumin 4.0, Globulin 2.8, Albumin/Globulin Ratio 1.4, Lipase 23 04/23/18 20:34: PT 11.1, INR 0.97, APTT 28.0 04/23/18 20:34: WBC 7.7 D, RBC 3.86, Hgb 12.6, Hct 37.3, MCV 96.6, MCH 32.6, MCHC 33.8, RDW 14.6 H, Plt Count 294, MPV 8.9, Gran % 62.9, Lymph % (Auto) 26.6 , [place] % (Auto) 6.5 H, Eos % (Auto) 3.6, Baso % (Auto) 0.4, Gran # 4.84, Lymph # (Auto) 2.1, [place] # (Auto) 0.5, Eos # (Auto) 0.3, Baso # (Auto) 0.03 - RAD Interpretation Radiology Orders: 04/23/18 20:59 ABD & PELVIS IV CONTRAST ONLY [CT] Stat - Medication Orders Current Medication Orders: Discontinued Medications Sodium Chloride (Sodium Chloride 0.9%) 500 mls @ 1,000 mls/hr IV .Q30M STA Stop: 04/23/18 19:38 Last Admin: 04/23/18 20:22 Dose: 1,000 mls/hr eMAR Start Stop Document 04/23/18 20:22 DEJAH (Rec: 04/23/18 21:11 DEJAH [id number]) Intravenous Solution Start Date 04/23/18 Start Time 20:22 End Date 04/23/18 End time 20:52 Total Infusion Time 30 Disposition/Present on Arrival - Present on Arrival Any Indicators Present on Arrival: No History of DVT/PE: No History of Uncontrolled Diabetes: No Urinary Catheter: No History of Decub. Ulcer: No History Surgical Site Infection Following: None - Disposition Have Diagnosis and Disposition been Completed?: Yes Diagnosis: Colitis Disposition: AGAINST MEDICAL ADVICE Disposition Time: 03:45 Condition: UNKNOWN Forms: [employer] (Scottish)
[2018-04-24 04:19] VITALS: BP 122/82; PULSE 70; O2SAT 100
--- NOTE | 2018-04-24 10:44 | CT ---
PROCEDURE: CT Abdomen and Pelvis without intravenous contrast HISTORY: left sided pain, gi bleed COMPARISON: None. TECHNIQUE: Technique. Contrast dose: Radiation dose: Total exam DLP = mGy-cm. This CT exam was performed using one or more of the following dose reduction techniques: Automated exposure control, adjustment of the mA and/or kV according to patient size, and/or use of iterative reconstruction technique. FINDINGS: LOWER THORAX: Unremarkable. LIVER: Unremarkable. No gross lesion or ductal dilatation. GALLBLADDER AND BILE DUCTS: Unremarkable. PANCREAS: Unremarkable. No gross lesion or ductal dilatation. SPLEEN: Unremarkable. ADRENALS: Unremarkable. No mass. KIDNEYS AND URETERS: Unremarkable. No hydronephrosis. No solid mass. VASCULATURE: Unremarkable. No aortic aneurysm. BOWEL: ROUGHLY 4 CENTIMETERS SEGMENT OF MODERATE CIRCUMFERENTIAL MURAL THICKENING OF THE DESCENDING COLON SUSPICIOUS FOR COLITIS. APPENDIX: Unremarkable. Normal appendix. PERITONEUM: Unremarkable. No free fluid. No free air. LYMPH NODES: Unremarkable. No enlarged lymph nodes. BLADDER: Unremarkable. REPRODUCTIVE: Unremarkable. BONES: No acute fracture. OTHER FINDINGS: None. IMPRESSION: ROUGHLY 4 CENTIMETERS SEGMENT OF MODERATE CIRCUMFERENTIAL MURAL THICKENING OF THE DESCENDING COLON SUSPICIOUS FOR COLITIS.
== END 2018-04-24 03:35 | disposition left against medical advice (07) ==
LOC: ED 18:35
DX: K52.9 Noninfective gastroenteritis and colitis, unspecified (principal); I10 Essential (primary) hypertension; F17.210 Nicotine dependence, cigarettes, uncomplicated
CPT/HCPCS: 74177; 80053; 81001; 83690; 83735; 84703; 85025; 85610; 85730; 86850; 86900; 99285; J7040; Q9967

== ENCOUNTER 2019-01-05 04:34 | Emergency (ER) | payer MEDICAID ==
[2019-01-05 04:36] VITALS: BMI 25.0
[2019-01-05 05:19] VITALS: TEMP 98.1
--- NOTE | 2019-01-05 05:37 | ED PDOC ---
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 Patient reported episode was associated with some bleeding and worsening of her Kang's Palsy symptoms. Patient reports any food causes immense burning sensation in her mouth. Denies any fevers, chills, abd pain, n/v/d/c, cp, sob. Time/Duration: Prior to Arrival, 24 hours Symptom Onset: Gradual Symptom Course: Worsening Quality: Burning Severity Level: Moderate <Santi Major - Last Filed: 01/05/19 06:14> - General Chief Complaint: ENT Problem Time Seen by Provider: 01/05/19 05:54 Past Medical History - Provider Review Nursing Documentation Reviewed: Yes - Past History Past History: No Previous - Infectious Disease Hx of Infectious Diseases: None - Tetanus Immunization Tetanus Immunization: Unknown - Cardiac Hx Pacemaker: No - Pulmonary Hx Respiratory Disorders: Yes Hx Asthma: Yes Hx Chronic Obstructive Pulmonary Disease (COPD): Yes (smoker) - Neurological Hx Neurological Disorder: Yes Other/Comment: [place] palsy. Neuropathy - HEENT Other/Comment: vocal cord polyp - Renal Hx Renal Disorder: No - Endocrine/Metabolic Hx Endocrine Disorders: No - Hematological/Oncological Hx Blood Disorders: No - Integumentary Hx Dermatological Disorder: No - Musculoskeletal/Rheumatological Hx Musculoskeletal Disorders: Yes - Gastrointestinal Hx Gastroesophageal Reflux: Yes - Genitourinary/Gynecological Hx Genitourinary Disorders: Yes Other/Comment: Tubal ligation, menopausal bleeding - Psychiatric Hx Psychophysiologic Disorder: Yes Hx Anxiety: Yes Hx Panic Disorder: Yes Hx Substance Use: No - Past Surgical History Past Surgical History: Unable to Obtain - Surgical History Hx Tubal Ligation: Yes Other/Comment: vocal cord surgery - Anesthesia Hx Anesthesia Reactions: No Hx Malignant Hyperthermia: No - Suicidal Assessment Feels Threatened In Home Enviroment: No <Santi Major - Last Filed: 01/05/19 06:14> Family/Social History - Physician Review Nursing Documentation Reviewed: Yes Family/Social History: Unknown Family HX Smoking Status: Heavy Smoker > 10 Cigarettes Daily Hx Alcohol Use: No Hx Substance Use: No Hx Substance Use Treatment: No <Santi Major - Last Filed: 01/05/19 06:14> Allergies/Home Meds <Dimitri Dave - Last Filed: 01/05/19 05:47> <Santi Major - Last Filed: 01/05/19 06:14> Allergies/Adverse Reactions: Allergies No Known Allergies Allergy (Verified 01/05/19 05:12) Home Medications: Home Meds Medication Instructions Recorded Confirmed Montelukast [Singulair] 10 mg PO DAILY 03/09/12 08/07/18 Albuterol 0.083% [Albuterol 0.083% 3 ml IH PRN PRN 06/07/13 08/07/18 Inhal Aida (2.5 mg/3 ml) UD] Carvedilol [Coreg] 12.5 mg PO BID 06/02/15 08/07/18 Omeprazole [PrilOSEC] 20 mg PO DAILY 06/02/15 08/07/18 Paroxetine HCl [Paxil] 20 mg PO DAILY 06/02/15 08/07/18 carBAMazepine [TEGretol-XR] 200 mg PO BID 06/02/15 08/07/18 clonazePAM [Klonopin] 1 mg PO BID 02/20/16 08/07/18 Albuterol/Ipratropium [Combivent 1 puff IH QID 12/28/17 08/07/18 Respimat] Aspirin [Aspirin Chewable] 1 tab PO DAILY 12/28/17 08/07/18 Gabapentin 600 mg PO DAILY 12/28/17 08/07/18 Ondansetron ODT [Zofran ODT] 1 tab PO QID PRN 12/28/17 08/07/18 amLODIPine [Norvasc] 1 tab PO DAILY 12/28/17 08/07/18 Baclofen [Lioresal] 20 mg PO TID 04/08/18 08/07/18 Cetirizine HCl 10 mg PO DAILY 04/08/18 08/07/18 Diclofenac Sodium [Voltaren] 75 mg PO BID 04/08/18 08/07/18 Gabapentin [Neurontin] 1,200 mg PO HS 04/08/18 08/07/18 Morphine [Morphine Extended 15 mg PO BID 04/08/18 08/07/18 Release Tab] Nortriptyline [Pamelor] 50 mg PO DAILY 04/08/18 08/07/18 Oxycodone HCl [Oxycontin] 15 mg PO BID 04/08/18 08/07/18 Review of Systems - Review of Systems Constitutional: Normal Eyes: Normal ENT: Sore Throat, Other (Mouth pain/ burning) Cardiovascular: Normal. absent: Chest Pain Gastrointestinal: Normal. absent: Abdominal Pain, Constipation, Diarrhea, Nausea, Vomiting Musculoskeletal: Normal Skin: Normal Neurological: Normal Endocrine: Normal Hemo/Lymphatic: Normal Psychiatric: Normal <Santi Major - Last Filed: 01/05/19 06:14> Physical Exam Vital Signs Temp Pulse Resp BP Pulse Ox 01/05/19 05:14 98.1 F 100 H 20 113/62 98 <Dimitri Dave - Last Filed: 01/05/19 05:47> Vital Signs Temp Pulse Resp BP Pulse Ox 01/05/19 05:14 98.1 F 100 H 20 113/62 98 Temperature: Afebrile Blood Pressure: Normal Pulse: Regular Respiratory Rate: Normal Appearance: Positive for: Well-Appearing, Non-Toxic, Comfortable Pain Distress: None Mental Status: Positive for: Alert and Oriented X 3 - Systems Exam Head: Present: Other (LEFT SIDED FAICIAL DROOP) Pupils: Present: PERRL Extroacular Muscles: Present: EOMI Conjunctiva: Present: Normal Mouth: Present: Other (ORAL LESIONS IN BACK LEFT CORNER OF MOUTH; MULTIPLE GROUPED VESICLES) Neck: Present: Normal Range of Motion Respiratory/Chest: Present: Wheezes. No: Respiratory Distress, Accessory Muscle Use Cardiovascular: Present: Regular Rate and Rhythm, Normal S1, S2. No: Murmurs Abdomen: No: Tenderness, Distention, Peritoneal Signs Back: Present: Normal Inspection Upper Extremity: Present: Normal Inspection. No: Cyanosis, Edema Lower Extremity: Present: Normal Inspection. No: Edema Neurological: Present: GCS=15 (CN II, III, IV, V, , VIII, IX, X, XI, XII intact; CNVII deficit 2/2 bells palsy, ), Speech Normal, Motor Func Grossly Intact (5/5 Gross strength UE/LE BL ) Skin: Present: Warm, Dry, Normal Color. No: Rashes Psychiatric: Present: Alert, Oriented x 3, Normal Insight, Normal Concentration <Santi Major - Last Filed: 01/05/19 06:14> Medical Decision Making - Medication Orders Current Medication Orders: Discontinued Medications Albuterol/Ipratropium (Duoneb 3 Mg/0.5 Mg (3 Ml) Ud) 3 ml IH STAT STA Stop: 01/05/19 05:41 Azithromycin (Zithromax) 500 mg PO STAT STA; Protocol Stop: 01/05/19 05:41 Methylprednisolone (Solu-Medrol) 125 mg IVP STAT STA Stop: 01/05/19 05:41 Valacyclovir HCl (Valtrex) 1 gm PO STAT STA; Protocol Stop: 01/05/19 05:41 <Dimitri Dave - Last Filed: 01/05/19 05:47> ED Course and Treatment: 01/05/19 06:08 Impression: 53F w/ burning in her mouth; found to have herpetic lesions on the inside of her mouth. Patient denies any prior hx of hsv infx/ cold sores. Patient noted to have significant wheezing on exam - COPD exacerbation Plan: Prednisone Duoneb Valtrex Zithromax Will Reassess and DC w/ Medrol pack Zpak Valtrex 1gm TID x7 days <Santi Major - Last Filed: 01/05/19 06:14> Disposition/Present on Arrival - Present on Arrival Any Indicators Present on Arrival: No - Disposition Have Diagnosis and Disposition been Completed?: Yes Disposition Time: 05:48 Patient Plan: Discharge <Dimitri Dave - Last Filed: 01/05/19 05:47> - Present on Arrival Any Indicators Present on Arrival: No History of DVT/PE: No History of Uncontrolled Diabetes: No Urinary Catheter: No History of Decub. Ulcer: No History Surgical Site Infection Following: None - Disposition Have Diagnosis and Disposition been Completed?: Yes Patient Plan: Discharge <Santi Major - Last Filed: 01/05/19 06:14> - Disposition Diagnosis: Oral herpes, Kang palsy Patient Problems: Current Active Problems Problem Status Onset Oral herpes Acute Kang palsy Acute Condition: GOOD Discharge Instructions (ExitCare): Kang's Palsy (DC), Cold Sores (Oral Herpes) (DC) Print Language: BENGALI Prescriptions: Azithromycin [Zithromax Tri-Balbir] 500 mg PO DAILY #6 tablet Methylprednisolone [Medrol Dose Pack (21 tabs)] 4 mg PO DAILY #21 mg Valacyclovir HCl [Valtrex] 1 gm PO TID 7 Days #24 tablet Referrals: Ricki Clayton MD [Primary Care Provider] - Follow up with primary Forms: [employer] ([place]inese)
[2019-01-05] MEDS ORDERED: Albuterol-Ipratrop 3 mg / 0.5 (3 ml) UD IH STA (05:40)
[2019-01-05] MEDS ORDERED: Albuterol 0.083% Inhal Sol (2.5 mg/3 mL) UD INH STA (05:53)
[2019-01-05 06:50] VITALS: BP 122/57; PULSE 90; RESP 17; O2SAT 100
== END 2019-01-05 06:40 | disposition home or self-care (01) ==
LOC: ED 04:34
DX: B00.2 Herpesviral gingivostomatitis and pharyngotonsillitis (principal); G51.0 Bell's palsy

== ENCOUNTER 2019-02-28 13:04 | Emergency (ER) | payer MEDICAID ==
[2019-02-28 13:05] VITALS: BMI 25.0
[2019-02-28] MEDS ORDERED: Albuterol-Ipratrop 3 mg / 0.5 (3 ml) UD IH STA ×2 (13:32→18:10)
[2019-02-28] MEDS ORDERED: Albuterol-Ipratrop 3 mg / 0.5 (3 ml) UD ONE ×2 (13:38→18:03)
--- NOTE | 2019-02-28 13:45 | ED PDOC ---
Arrival/HPI - General Chief Complaint: Psychiatric Evaluation Time Seen by Provider: 02/28/19 13:17 Historian: Patient - History of Present Illness Time/Duration: Other (Last week) Symptom Onset: Gradual Symptom Course: Worsening Severity Level: Moderate Activities at Onset: Rest Associated Symptoms (Text): 02/28/19 13:42 Patient was found outside wandering the streets and brought to the emergency department. Patient reports that she has been depressed and seeing her father. He several years ago. She states that she has been seeing him in her dreams and visually. No auditory hallucinations. She is extremely tearful. She was somewhat lethargic, secondary to her chronic opiate pain medication. She denies any other drugs or alcohol. Past Medical History - Past History Past History: No Previous - Infectious Disease Hx of Infectious Diseases: None - Tetanus Immunization Tetanus Immunization: Unknown - Cardiac Hx Pacemaker: No - Pulmonary Hx Respiratory Disorders: Yes Hx Asthma: Yes Hx Chronic Obstructive Pulmonary Disease (COPD): Yes (smoker) - Neurological Hx Neurological Disorder: Yes Other/Comment: [place] palsy. Neuropathy - HEENT Other/Comment: vocal cord polyp - Renal Hx Renal Disorder: No - Endocrine/Metabolic Hx Endocrine Disorders: No - Hematological/Oncological Hx Blood Disorders: No - Integumentary Hx Dermatological Disorder: No - Musculoskeletal/Rheumatological Hx Musculoskeletal Disorders: Yes - Gastrointestinal Hx Gastroesophageal Reflux: Yes - Genitourinary/Gynecological Hx Genitourinary Disorders: Yes Other/Comment: Tubal ligation, menopausal bleeding - Psychiatric Hx Psychophysiologic Disorder: Yes Hx Anxiety: Yes Hx Panic Disorder: Yes Hx Substance Use: No - Past Surgical History Past Surgical History: Unable to Obtain - Surgical History Hx Tubal Ligation: Yes Other/Comment: vocal cord surgery - Anesthesia Hx Anesthesia Reactions: No Hx Malignant Hyperthermia: No - Suicidal Assessment Feels Threatened In Home Enviroment: No Family/Social History - Physician Review Nursing Documentation Reviewed: Yes Family/Social History: Unknown Family HX Smoking Status: Heavy Smoker > 10 Cigarettes Daily Hx Alcohol Use: No Hx Substance Use: No Hx Substance Use Treatment: No Allergies/Home Meds Allergies/Adverse Reactions: Allergies No Known Allergies Allergy (Verified 02/28/19 13:14) Home Medications: Home Meds Medication Instructions Recorded Confirmed Montelukast [Singulair] 10 mg PO DAILY 03/09/12 08/07/18 Albuterol 0.083% [Albuterol 0.083% 3 ml IH PRN PRN 06/07/13 08/07/18 Inhal Aida (2.5 mg/3 ml) UD] Carvedilol [Coreg] 12.5 mg PO BID 06/02/15 08/07/18 Omeprazole [PrilOSEC] 20 mg PO DAILY 06/02/15 08/07/18 Paroxetine HCl [Paxil] 20 mg PO DAILY 06/02/15 08/07/18 carBAMazepine [TEGretol-XR] 200 mg PO BID 06/02/15 08/07/18 clonazePAM [Klonopin] 1 mg PO BID 02/20/16 08/07/18 Albuterol/Ipratropium [Combivent 1 puff IH QID 12/28/17 08/07/18 Respimat] Aspirin [Aspirin Chewable] 1 tab PO DAILY 12/28/17 08/07/18 Gabapentin 600 mg PO DAILY 12/28/17 08/07/18 Ondansetron ODT [Zofran ODT] 1 tab PO QID PRN 12/28/17 08/07/18 amLODIPine [Norvasc] 1 tab PO DAILY 12/28/17 08/07/18 Baclofen [Lioresal] 20 mg PO TID 04/08/18 08/07/18 Cetirizine HCl 10 mg PO DAILY 04/08/18 08/07/18 Diclofenac Sodium [Voltaren] 75 mg PO BID 04/08/18 08/07/18 Gabapentin [Neurontin] 1,200 mg PO HS 04/08/18 08/07/18 Morphine [Morphine Extended 15 mg PO BID 04/08/18 08/07/18 Release Tab] Nortriptyline [Pamelor] 50 mg PO DAILY 04/08/18 08/07/18 Oxycodone HCl [Oxycontin] 15 mg PO BID 04/08/18 08/07/18 Review of Systems - Physician Review All systems were reviewed & negative as marked: Yes - Review of Systems Constitutional: absent: Fatigue, Fevers Respiratory: Wheezing. absent: SOB, Cough Cardiovascular: absent: Chest Pain, Palpitations, Syncope Gastrointestinal: absent: Abdominal Pain, Diarrhea, Vomiting Genitourinary Female: absent: Dysuria, Frequency, Hematuria Neurological: absent: Headache, Dizziness, Focal Weakness Physical Exam Vital Signs Pulse BP 02/28/19 13:14 124 H 146/98 H Temperature: Afebrile Blood Pressure: Hypertensive Pulse: Tachycardic Respiratory Rate: Normal Appearance: Positive for: Well-Appearing, Non-Toxic, Comfortable Pain Distress: None Mental Status: Positive for: Alert and Oriented X 3 - Systems Exam Head: Present: Atraumatic, Normocephalic Pupils: Present: PERRL Extroacular Muscles: Present: EOMI Conjunctiva: Present: Normal Mouth: Present: Moist Mucous Membranes Pharnyx: No: ERYTHEMA, EXUDATE, TONSILS ENLARGED Neck: Present: Normal Range of Motion Respiratory/Chest: Present: Wheezes, Decreased Breath Sounds. No: Respiratory Distress, Rales, Retracting, Rhonchi, Tachypneic, Tender to Palpation Cardiovascular: Present: Regular Rate and Rhythm, Normal S1, S2, Tachycardic. No: Murmurs Abdomen: Present: Normal Bowel Sounds. No: Tenderness, Distention, Peritoneal S igns, Rebound, Guarding Upper Extremity: Present: Normal Inspection. No: Cyanosis, Edema Lower Extremity: Present: Normal Inspection. No: Edema Neurological: Present: GCS=15, CN II-XII Intact, Speech Normal, Motor Func Grossly Intact, Normal Sensory Function, Normal Cerebellar Funct Skin: Present: Warm, Dry, Normal Color. No: Rashes Psychiatric: Present: Alert, Oriented x 3, Normal Insight, Normal Concentration, Depressed Mood, Hallucinations, Lethargic. No: Normal Affect, Normal Mood, Anxious, Agitated, Suicidal Ideation, Homicidal Ideation, Delusional, Intoxicated Medical Decision Making ED Course and Treatment: 02/28/19 13:45 EKG shows sinus tachycardia rate approximately 125 with poor R wave progression and no acute ST or T wave changes. 02/28/19 17:36 Patient's son has arrived and reports that he thinks his mother has dementia, as she is up wandering around at night and seeing people who are not really there. 02/28/19 19:15 Seen and evaluated by crisis who will discharge home. With discharge home accompanied by her son. Follow-up with PMD. Follow-up in ER as needed. - RAD Interpretation Radiology Orders: 02/28/19 13:26 CHEST PORTABLE [RAD] Stat Chest one view is read by the radiologist shows no infiltrate effusion or cardiomegaly. Milk Route Supervisor: Radiologist - Medication Orders Current Medication Orders: Discontinued Medications Albuterol/Ipratropium (Duoneb 3 Mg/0.5 Mg (3 Ml) Ud) 3 ml IH ONCE STA Stop: 02/28/19 13:33 Disposition/Present on Arrival - Present on Arrival Any Indicators Present on Arrival: No History of DVT/PE: No History of Uncontrolled Diabetes: No Urinary Catheter: No History of Decub. Ulcer: No History Surgical Site Infection Following: None - Disposition Have Diagnosis and Disposition been Completed?: Yes Diagnosis: Depression, Chronic pain syndrome Disposition: HOME/ ROUTINE Disposition Time: 19:16 Patient Plan: Discharge Condition: IMPROVED Discharge Instructions (ExitCare): Depression, Chronic Pain (DC) Referrals: Ricki Clayton MD [Primary Care Provider] - Follow up with primary Forms: [employer] ([place])
[2019-02-28 13:55] LABS: BASO # 0.05 K/mm3 (0.0-2.0); BASO % 0.3 % (0.0-3.0); EOS # 0.3 (0.0-0.7); EOS % 1.9 % (1.5-5.0); HEMOGLOBIN 14.4 g/dL (12.0-16.0); LYMPH # 2.3 (1.2-3.4); LYMPH % 15.1 % (22.0-35.0); MEAN CELL VOLUME 99.8 fl (80.0-105.0); MONO # 1.2 (0.1-0.6); MONO % 8.2 % (1.0-6.0); RBC 4.37 10^6/uL (3.5-6.1); RED CELL DISTRIBUTION WIDTH 13.8 % (11.5-14.5); WHITE BLOOD COUNT 14.9 10^3/uL (4.5-11.0)
[2019-02-28 14:10] LABS: ACETAMINOPHEN < 10.0 ug/ml (10.0-20.0); SALICYLATE < 1 mg/dL (2.0-20.0)
--- NOTE | 2019-02-28 14:11 | RAD ---
Date of service: 02/28/2019 HISTORY: pes COMPARISON: 11/01/2016 TECHNIQUE: 1 view obtained. FINDINGS: LUNGS: No active pulmonary disease. PLEURA: No significant pleural effusion identified, no pneumothorax apparent. CARDIOVASCULAR: No aortic atherosclerotic calcification present. Normal cardiac size. No pulmonary vascular congestion. OSSEOUS STRUCTURES: No significant abnormalities. VISUALIZED UPPER ABDOMEN: Normal. OTHER FINDINGS: None. IMPRESSION: No active disease.
[2019-02-28 14:47] LABS: ALB/GLOB RATIO 1.6 (1.1-1.8); ALBUMIN 4.6 g/dL (3.0-4.8); ALT/SGPT 13 U/L (7-56); AST/SGOT 24 U/L (14-36); BLOOD UREA NITROGEN 14 mg/dL (7-21); CALCIUM 8.9 mg/dL (8.4-10.5); GFR NON-AFRICAN AMERICAN > 60
[2019-02-28 15:28] LABS: URINE APPEARANCE CLEAR (CLEAR); URINE BILIRUBIN NEGATIVE (NEGATIVE); URINE BLOOD MODERATE (NEGATIVE); URINE COLOR LIGHT YELLOW (YELLOW); URINE GLUCOSE (UA) NEGATIVE (NEGATIVE); URINE LEUKOCYTE ESTERASE NEGATIVE Leu/uL (NEGATIVE); URINE PROTEIN NEGATIVE mg/dL (<30 mg/dL); URINE UROBILINOGEN 0.2 E.U./dL (<1 E.U./dL)
[2019-02-28 15:31] LABS: URINE EPITHELIAL CELLS 0 - 2 /hpf (0-5)
--- NOTE | 2019-02-28 15:31 | CARD ---
APPROVED REPORT Date of service: 02/28/2019 EKG Measurement Heart [id number] <Conclusion> Sinus tachycardia Poor R Progression V1-V3.
[2019-02-28 15:47] LABS: BENZODIAZEPINES, UR NEGATIVE (NEGATIVE)
[2019-02-28 15:50] LABS: BARBITURATES, UR NEGATIVE (NEGATIVE); OPIATES, UR POSITIVE (NEGATIVE); PHENCYCLIDINE, UR NEGATIVE (NEGATIVE)
[2019-02-28 19:09] VITALS: TEMP 98
[2019-02-28 19:12] VITALS: RESP 18
[2019-02-28 20:39] VITALS: BP 118/84; PULSE 91; O2SAT 100
== END 2019-02-28 19:27 | disposition home or self-care (01) ==
LOC: ED 13:04
DX: F32.9 Major depressive disorder, single episode, unspecified (principal); G89.4 Chronic pain syndrome